=== PATIENT | male | born 1945 | race Caucasian/White ===

== ENCOUNTER → 2017-09-26 14:47 | Outpatient (CLI) | payer OTHER, SELFPAY ==
[2017-09-26 16:00] LABS: PSA,Total- Diagnostic 2.48 ng/mL (0.0-4.0)
== END ==
PROVIDERS: Visit Provider Urology
DX: R97.20 Elevated prostate specific antigen [PSA] (principal)
CPT/HCPCS: 36415; 84153

== ENCOUNTER → 2017-10-21 08:04 | Outpatient (CLI) | payer OTHER, SELFPAY ==
--- NOTE | 2017-10-21 08:15 | RAD_ITS ---
STUDY: X-RAY - ESOPHAGUS (BARIUM SWALLOW) WITH FLUOROSCOPY REASON FOR EXAM: Male, 72 years old. Tightness in the throat. TECHNIQUE: 8 view(s) of the esophagus were obtained following swallowing of barium. FLUOROSCOPY TIME (if supplied): (0:27) minutes/seconds COMPARISON: None. FINDINGS: There is no demonstrated esophageal foreign body. There is no demonstrated stricture or mucosal abnormality. Normal gastroesophageal junction, without a demonstrated hiatal hernia. The patient ingested a 12 mm tablet of barium without any difficulty. There is atherosclerotic calcification of the aortic arch with tortuosity of the descending aorta. Normal visualized pulmonary parenchyma. There are diffuse degenerative changes of the visualized thoracic spine. RAD/Esophagus Only IMPRESSION: Normal plain film x-ray examination (barium swallow) of the esophagus. Electronically Signed: Obdulio Ray MD at 8:52 EDT Tel [phone], Service support ,
== END ==
PROVIDERS: Family Provider Family Medicine; PCP Family Medicine; Visit Provider Internal Medicine Gastroenterology
DX: R13.10 Dysphagia, unspecified (principal)
CPT/HCPCS: 74220

== ENCOUNTER → 2018-01-28 12:38 | Outpatient (CLI) | payer OTHER, MEDICARE, SELFPAY ==
[2018-01-28 13:50] LABS: ALB/GLOB Ratio 0.9 RATIO (0.9-2.4); AST(SGOT) 19 U/L (15-37); Alanine Aminotransfer ALT/SGPT 28 U/L (16-61); Albumin, Serum 3.4 g/dL (3.2-5.0); Alkaline Phosphatase 60 U/L (45-117); Anion Gap 10 (5-15); BUN 24 mg/dL (7-18); BUN/Creat Ratio 19.4 RATIO (10-20); Calcium,Total 8.3 mg/dL (8.5-10.1); Chloride 109 mmol/L (98-107); Creatinine, Serum 1.24 mg/dL (0.70-1.30); EST Glomerular Filtration Rate 61 mL/min (>60); Est Glom Filt Rate - Afr Amer 74 mL/min (>60); Globulin 3.9 g/dL (2.2-4.2); Glucose 155 mg/dL (74-106); Potassium 4.1 mmol/L (3.5-5.1); Protein, Total 7.3 g/dL (6.4-8.2); Sodium Level 143 mmol/L (136-145); Thyroid Stim Hormone (TSH) 0.48 uIU/mL (0.358-3.74)
[2018-01-31 12:06] LABS: Testosterone, Free 9.48 ng/dL (5.00-21.00)
[2018-01-31 13:23] LABS: Testosterone, % Free 2.57 % (1.50-4.20); Testosterone, Total 369 ng/dL (264-916)
== END ==
PROVIDERS: Family Provider Family Medicine; PCP Family Medicine; Visit Provider Family Medicine
DX: I10 Essential (primary) hypertension (principal); R53.83 Other fatigue; R06.00 Dyspnea, unspecified
CPT/HCPCS: 36415; 80053; 84402; 84403; 84443

== ENCOUNTER → 2018-02-17 12:02 | Outpatient (CLI) | payer MEDICARE, SELFPAY ==
[2018-02-17 12:40] LABS: Hemoglobin A1c 5.6 % (4.2-6.3)
== END ==
PROVIDERS: Family Provider Family Medicine; PCP Family Medicine; Referring Provider Family Medicine; Visit Provider Family Medicine
DX: R73.01 Impaired fasting glucose (principal)
CPT/HCPCS: 36415; 83036

== ENCOUNTER → 2018-10-15 | Outpatient (CLI) | payer MEDICARE, SELFPAY ==
[2018-10-15 10:58] LABS: PSA,Total - Annual Screen 2.43 ng/mL (0.00-4.00)
== END | disposition home or self-care (01) ==
PROVIDERS: Family Provider Family Medicine; PCP Family Medicine; Referring Provider Urology; Visit Provider Urology
DX: Z12.5 Encounter for screening for malignant neoplasm of prostate (principal)
CPT/HCPCS: 36415; 84153; G0103

== ENCOUNTER → 2019-02-03 10:31 | Outpatient (CLI) | payer MEDICARE, SELFPAY ==
[2019-02-03 10:09] VITALS: BMI 35.9
[2019-02-03 12:16] LABS: Hematocrit 41.3 % (40-54); Hemoglobin 13.6 g/dL (13.0-16.5); Mean Corp Hgb Conc 32.9 g/dL (32-36); Mean Corpuscular Hgb 29.2 pg (27.0-32.0); Mean Corpuscular Volume 88.6 fL (80-94); Mean Platelet Vol. 9.5 fl (6.2-12.0); Platelet Count 232 K/mm3 (150-450); RBC Distribution Width SD 44.8 fl (35.1-43.9); Red Blood Count 4.66 M/mm3 (4.6-6.2); White Blood Count 4.8 K/mm3 (4.4-11.0)
[2019-02-03 12:41] LABS: ALB/GLOB Ratio 0.9 RATIO (0.9-2.4); AST(SGOT) 25 U/L (15-37); Alanine Aminotransfer ALT/SGPT 33 U/L (16-61); Albumin, Serum 3.6 g/dL (3.2-5.0); Alkaline Phosphatase 69 U/L (45-117); Anion Gap 7 (5-15); BUN 25 mg/dL (7-18); BUN/Creat Ratio 19.5 RATIO (10-20); Chloride 108 mmol/L (98-107); Cholesterol 141 mg/dL (200); Creatinine, Serum 1.28 mg/dL (0.70-1.30); EST Glomerular Filtration Rate 59 mL/min (>60); Est Glom Filt Rate - Afr Amer 71 mL/min (>60); Globulin 4.1 g/dL (2.2-4.2); Glucose 96 mg/dL (74-106); High Density Lipoprotein 43 mg/dL; Potassium 4.1 mmol/L (3.5-5.1); Protein, Total 7.7 g/dL (6.4-8.2); Sodium Level 139 mmol/L (136-145); Thyroid Stim Hormone (TSH) 0.55 uIU/mL (0.358-3.74); Triglycerides 54 mg/dL; Very Low Density Lipoprotein 11 mg/dL (5-40)
== END ==
PROVIDERS: Family Provider Family Medicine; PCP Family Medicine; Visit Provider Nurse Practitioner Family
DX: I10 Essential (primary) hypertension (principal); E03.9 Hypothyroidism, unspecified
CPT/HCPCS: 36415; 80053; 80061; 84443; 85027

== ENCOUNTER → 2019-12-15 16:12 | Outpatient (CLI) | payer MEDICARE, SELFPAY ==
[2019-02-03 10:09] VITALS: BMI 35.9
[2019-12-15 18:07] LABS: PSA,Total- Diagnostic 3.58 ng/mL (0.0-4.0)
== END ==
PROVIDERS: PCP Family Medicine; Referring Provider Urology; Visit Provider Urology
DX: R97.20 Elevated prostate specific antigen [PSA] (principal)
CPT/HCPCS: 36415; 84153

== ENCOUNTER 2020-08-03 13:43 | Outpatient (RCR) | payer MEDICARE, SELFPAY ==
[2019-02-03 10:09] VITALS: BMI 35.9
[2020-08-03] MEDS: COVID-19 VACC, MRNA(PFIZER)/PF 30 MCG/0.3 ML SYRINGE IM (08:31)
[2020-08-24] MEDS: COVID-19 VACC, MRNA(PFIZER)/PF 30 MCG/0.3 ML SYRINGE IM (08:32)
== END 2020-10-31 23:59 ==
LOC: IMMUN 13:43
PROVIDERS: PCP Family Medicine; Visit Provider Family Medicine
DX: Z23 Encounter for immunization (principal)
CPT/HCPCS: 0001A; 0002A; 91300

== ENCOUNTER → 2020-11-09 09:11 | Outpatient (CLI) | payer MEDICARE, SELFPAY ==
[2020-11-09 08:42] VITALS: BMI 35.9
[2020-11-09 12:17] LABS: Absolute Lymphocyte Count 1.28 X10^3/uL (0.83-4.51); Basophil# 0.04 X10^3/uL; Basophil% 0.8 % (0-1); Eosinophil# 0.18 X10^3/uL; Eosinophils% 3.6 % (0-5); Hematocrit 42.3 % (40-54); Hemoglobin 13.9 g/dL (13.0-16.5); Lymphocyte # 1.28 X10^3/ul (0.83-4.51); Lymphocyte % 25.4 % (19-41); Mean Corp Hgb Conc 32.9 g/dL (32-36); Mean Corpuscular Hgb 29.3 pg (27.0-32.0); Mean Corpuscular Volume 89.2 fL (80-94); Mean Platelet Vol. 9.6 fl (6.2-12.0); Monocyte# 0.54 X10^3/uL; Monocyte% 10.7 % (0-10); NRBC Flagged by Analyzer 0 % (0-5); Neutrophil # 2.98 X10^3/uL (2.7-7.7); Neutrophil % 59.1 % (47-70); Platelet Count 239 K/mm3 (150-450); RBC Distribution Width CV 13.8 % (11.6-14.6); RBC Distribution Width SD 44.5 fl (35.1-43.9); Red Blood Count 4.74 M/mm3 (4.6-6.2)
[2020-11-09 12:44] LABS: ALB/GLOB Ratio 0.9 RATIO (0.9-2.4); AST(SGOT) 13 U/L (15-37); Alanine Aminotransfer ALT/SGPT 26 U/L (16-61); Albumin, Serum 3.4 g/dL (3.2-5.0); Alkaline Phosphatase 66 U/L (45-117); Anion Gap 6 (5-15); BUN 23 mg/dL (7-18); BUN/Creat Ratio 19.8 RATIO (10-20); Calcium,Total 8.7 mg/dL (8.5-10.1); Chloride 108 mmol/L (98-107); Creatinine, Serum 1.16 mg/dL (0.70-1.30); EST Glomerular Filtration Rate 65 mL/min (>60); Est Glom Filt Rate - Afr Amer 79 mL/min (>60); Globulin 3.8 g/dL (2.2-4.2); Glucose 100 mg/dL (74-106); Potassium 4.3 mmol/L (3.5-5.1); Protein, Total 7.2 g/dL (6.4-8.2); Sodium Level 140 mmol/L (136-145); Thyroid Stim Hormone (TSH) 0.51 uIU/mL (0.358-3.74)
== END ==
PROVIDERS: PCP Family Medicine; Referring Provider Physician Assistant; Visit Provider Physician Assistant
DX: E03.9 Hypothyroidism, unspecified (principal); I10 Essential (primary) hypertension
CPT/HCPCS: 36415; 80053; 84443; 85025

== ENCOUNTER → 2021-01-10 09:49 | Outpatient (CLI) | payer MEDICARE, SELFPAY ==
[2020-11-16 09:02] VITALS: BMI 35.9
[2021-01-10 12:17] LABS: PSA,Total- Diagnostic 2.22 ng/mL (0.0-4.0)
== END ==
PROVIDERS: PCP Family Medicine; Referring Provider Urology; Visit Provider Urology
DX: R97.20 Elevated prostate specific antigen [PSA] (principal)
CPT/HCPCS: 36415; 84153

== ENCOUNTER 2021-06-27 15:34 | Outpatient (CLI) | payer MEDICARE, SELFPAY ==
--- NOTE | 2021-06-27 15:36 | RAD_ITS ---
STUDY: X-RAY - CERVICAL SPINE REASON FOR EXAM: Male, 75 years old. fall TECHNIQUE: 4 view(s) of the cervical spine were obtained. COMPARISON: None FINDINGS: Normal anterior atlantoaxial articulation. Normal odontoid process. Decreased cervical lordosis. There is chronic wedging of superior endplates of C6 and C7. No acute fracture or subluxation. Grade 1 spondylolisthesis at C3-4... There is narrowing at C3-4 and C5-6 and C6-7 disc spaces. The soft tissue structures are unremarkable. RAD/Cerv Spine 2 or 3 Views IMPRESSION: Moderate spondylosis and chronic wedging of C6 and C7. No acute fracture or other significant bony pathology Electronically Signed: Carlos Vega MD at 16:02 EST ,
== END 2021-06-27 23:59 | disposition short-term general hospital (02) ==
LOC: MTLAB 15:36 → MTRAD 15:36
PROVIDERS: PCP Family Medicine; Referring Provider Nurse Practitioner Family; Visit Provider Nurse Practitioner Family
DX: M54.2 Cervicalgia (principal); W19.XXXA Unspecified fall, initial encounter
CPT/HCPCS: 72040

== ENCOUNTER 2021-09-21 05:50 | Day surgery (SDC) | payer MEDICARE, SELFPAY ==
--- NOTE | 2021-09-21 | IMM_PTH ---
PATIENT: HARSHAD CHAND LOC: EN U#:[id number] AGE/SX: 76/M ROOM: RE09/21/[address]: Dr. Royal Gar DO : 1945 BED: DIS: 09/21/2021 SPEC #: [id number] RECD: 09/21/21 12:56 STATUS: LESLIE REQ #: [id number] HENRY: 09/21/21 00:[address]: Royal Gar DEPT: IMMUNOHISTOCHEMISTRY RECD BY: Muriel Francois ENTERED: 09/24/21 13:02 SP TYPE: IMMUNO OTHR DR: Dr. Pascual Mott, Tissues: Esophagus, NOS Procedures: P53 (initial) KI-67 (add) PHYSICIAN & INSTITUTION [place] [id number] SPECIMEN INFORMATION: Tissue Source: Distal esophageal biopsy Clinical Info: Dysphagia Specimen Number: [id number] CPT code: 19583, 03028 METHODOLOGY: Deparaffinized sections of prefer/formalin-fixed tissue or PAP/DQ stained slides are incubated with monoclonal/polyclonal antibodies/oligonucleotide probes. Localization is made via biotin free immunoperoxidase method. Appropriate controls are performed and reacted as expected. Results on target cell population are indicated in the following table: RESULTS: ANTIBODY / CLONE RESULT Block A P53 (DO-7) negative Ki-67 (30-9) positive, low These tests were developed and their performance characteristics determined by [facility]. They may not have been cleared or approved by the U.S. Food and Drug Administration. The FDA has determined that such clearance or approval is not necessary. The above immunohistochemical/dualISH markers are ordered and reviewed by the Pathologist. INTERPRETATION: Distal esophageal biopsy: Negative for dysplasia. ALEXANDER:theo 09/25/2021
[2021-09-21 06:24] VITALS: BP 136/69; PULSE 69; RESP 18; TEMP 36.7; O2SAT 96; BMI 34.6
[2021-09-21] MEDS: Lactated Ringers 1,000 ML 15 ML IV (06:34)
--- NOTE | 2021-09-21 06:46 | PCM.HP.BLA ---
History and Physical Date of Admission: 09/21/21 HARSHAD CHAND, is a 75 M who presents to the office today for difficulty swallowing food. This started several months ago but has gotten worse in the past month. Steak is especially problematic, and it is his favorite food. He is cutting food into small pieces, taking small bites, chewing slowly, and drinking plenty of fluids to make sure the food goes down. He has had to cough up food on a couple of occasions. He has not had to go to the emergency department for food stuck in the esophagus. He takes pantoprazole 40 mg daily. He does not have heartburn on PPI. No chest pain or abdominal pain. He has had endoscopy before, no abnormal findings. Last endoscopy was probably more than 5 years ago. He had a barium swallow at least 5 years ago which was normal. No hematemesis. He is accompanied by his today. Their daughter was diagnosed with and from esophageal cancer at the age of 37. Bowels are regular. No melena or hematochezia. Last colonoscopy was probably about 10 years ago, he does not recall what was said about follow-up. No history of polyps. His father had colon cancer. ROS Const Constitutional: No fatigue, fever(s), headache(s), weight change, sleep problems, abnormal sleep pattern or change in appetite ENT ENT: Positive for difficulty swallowing; No headache(s), hoarseness or sore throat Resp Respiratory: No cough, hemoptysis or shortness of breath Cardio Cardiology: No chest pain at rest or generalized swelling Gastro GI: Positive for difficulty swallowing; No abdominal pain, belching, bloating, change in bowel habits, change in stool character, coffee ground emesis, constipation, cramping, diarrhea, heartburn, feeling full early, excessive flatus, incontinent of stools, Vomiting blood/hematemesis, Blood in stool, loose stools, Black,tarry stools, nausea/dyspepsia, pain with swallowing or vomiting Musc Musculoskeletal: No joint pain, back pain, joint swelling, numbness or tingling Skin Skin: No itchy eyes or rash Neuro Neurology: No behavioral changes, confusion, headache(s), numbness or tingling Psych Psychiatric: No abnormal sleep pattern, No anxiety, No behavioral changes, No change in appetite, No confusion and No depression Endo Endocrine: No cold intolerance, fatigue, heat intolerance, increased thirst/drinking or weight change Aller/Imm Allergy/Immunologic: No food intolerance or itchy eyes Jackson/Lymp Hematologic/Lymphatic: No easy bleeding, easy bruising or enlarged lymph nodes Exam Const General: cooperative, comfortable, no acute distress, well developed and well groomed GI Inspection: obesity Palpation: soft and nontender Quality Reporting Tobacco Screening ([facility] 138) Smoking Status: Never smoker Assessment and Plan Assessment and Plan (1) Dysphagia: Status: Acute (2) FH: esophageal cancer: Status: Acute (3) FH: colon cancer: Status: Acute Plan: 85-year-old man with difficulty swallowing food. He is scheduled for endoscopy to evaluate for esophagitis, esophageal stricture, mass. He can increase his pantoprazole to twice daily. We will take care of his dysphagia and then address need for likely follow-up colonoscopy. I have re-examined the patient. There are no clinical changes since date of exam.
--- NOTE | 2021-09-21 07:00 | EGD_PTH ---
PATIENT: HARSHAD CHAND LOC: EN U#:[id number] AGE/SX: 76/M ROOM: RE09/21/[address]: Dr. Royal Gar DO : 1945 BED: DIS: 09/21/2021 SPEC #: [id number] RECD: 09/21/21 10:28 STATUS: LESLIE REDora #: [id number] HENRY: 09/21/21 07:[address]: Royal Gar DEPT: SURGICAL PATHOLOGY RECD BY: Muriel Francois ENTERED: 09/21/21 11:58 SP TYPE: EGD BIOPSY OT DR: Dr. Pascual Mott DO Tissues: A - Esophagus, NOS B - Duodenum, NOS Procedures: Special Stain Group II Surgery Specimen Level IV Alcian Blue/PAS (control) HEADER OPERATION: EGD ([facility] [place] PRE-OP DIAGNOSIS: Dysphagia TISSUE SUBMITTED: A. Distal esophageal biopsy, B. Duodenal polyp MICROSCOPIC DIAGNOSIS A. 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 Focal moderate chronic inflammation and mild acute inflammation. Focal changes consistent with eosinophilic esophagitis. Negative for dysplasia. B. Duodenal polyp, biopsy: Fragments of duodenal mucosa with non-specific chronic inflammation and Deepa gland hyperplasia. /SJ 09/24/21 COMMENT A. Alcian blue/PAS stain with matched control is used in the evaluation of the specimen. Increased number of eosinophils (>15 per high field) are noted suggestive of eosinophilic esophagitis. Immunohistochemistry ([id number]) for P53 and Ki-67 will be performed and results will be reported separately. MICROSCOPIC DESCRIPTION Slides are reviewed. GROSS DESCRIPTION A. Received is one container labeled with the patient name and designated distal esophageal biopsy. The specimen consists of multiple irregular fragments of light tolentino soft tissue that in aggregate measure 1.5 x 0.5 x 0.1 cm. The specimen is totally submitted in one cassette. / B. Received is one container labeled with the patient name and designated duodenal polyp. The specimen consists of two irregular fragments of light tolentino soft tissue that in aggregate measure 0.6 x 0.3 x 0.1 cm. The specimen is totally submitted in two cassettes. / 09/24/2021 TC:3 CPT: 27503 x 2, 27797
[2021-09-21 07:36] VITALS: BP 112/59; BP 136/69; PULSE 67; RESP 16; TEMP 36.7; O2SAT 97
[2021-09-21 07:40] VITALS: BP 102/55; BP 136/69; PULSE 71; RESP 16; O2SAT 96
--- NOTE | 2021-09-21 07:40 | OP.EGD_ITS ---
Patient Name: Thierry Jacinto Procedure Date: 09/21/2021 7:14 AM Date of : 1945 Age: 76 Procedure: Upper GI endoscopy Indications: Dysphagia Providers: Royal Gar DO Medicines: Monitored Anesthesia Care Patient Profile: This is a 76 year old male. Refer to note in patient chart for documentation of history and physical. Patient has symptoms of chronic dysphagia and dysphagia with solids. Complications: No immediate complications. Procedure: Pre-Anesthesia Assessment: - Prior to the procedure, a History and Physical was performed, and patient medications and allergies were reviewed. The patient is competent. The risks and benefits of the procedure and the sedation options and risks were discussed with the patient. All questions were answered and informed consent was obtained. Patient identification and proposed procedure were verified by the physician in the pre-procedure area. Mental Status Examination: alert and oriented. Airway Examination: normal oropharyngeal airway and neck mobility. Respiratory Examination: clear to auscultation. CV Examination: normal. Prophylactic Antibiotics: The patient does not require prophylactic antibiotics. Prior Anticoagulants: The patient has taken no previous anticoagulant or antiplatelet agents. After reviewing the risks and benefits, the patient was deemed in satisfactory condition to undergo the procedure. The anesthesia plan was to use moderate sedation / analgesia (conscious sedation). Immediately prior to administration of medications, the patient was re-assessed for adequacy to receive sedatives. The heart rate, respiratory rate, oxygen saturations, blood pressure, adequacy of pulmonary ventilation, and response to care were monitored throughout the procedure. The physical status of the patient was re-assessed after the procedure. After obtaining informed consent, the endoscope was passed under direct vision. Throughout the procedure, the patient's blood pressure, pulse, and oxygen saturations were monitored continuously. The gastroscope was introduced through the mouth, and advanced to the second part of duodenum. The upper GI endoscopy was accomplished without difficulty. The patient tolerated the procedure well. Scope In: 7:24:11 AM Scope Out: 7:32:54 AM Total Procedure Duration Time 0 hours 8 minutes 43 seconds Findings: LA Grade B (one or more mucosal breaks greater than 5 mm, not extending between the tops of two mucosal folds) esophagitis with no bleeding was found 38 to 40 cm from the incisors. Biopsies were taken with a cold forceps for histology. Verification of patient identification for the specimen was done. Estimated blood loss was minimal. A moderate Schatzki ring was found in the lower third of the esophagus. A guidewire was placed and the scope was withdrawn. Dilation was performed with a Savary dilator with no resistance at 60 Fr. A medium amount of a phytobezoar was found in the gastric body. A single 5 mm sessile polyp was found in the duodenal bulb. The polyp was removed with a cold snare. Resection and retrieval were complete. Verification of patient identification for the specimen was done. Estimated blood loss was minimal. Impression: - LA Grade B reflux esophagitis. Biopsied. - Moderate Schatzki ring. Dilated. - A medium amount of a phytobezoar in the stomach. - A single duodenal polyp. Resected and retrieved. -Mild duodenal stricture was seen in the first portion of the duodenum Recommendation: - Patient has a contact number available for emergencies. The signs and symptoms of potential delayed complications were discussed with the patient. Return to normal activities tomorrow. Written discharge instructions were provided to the patient. - Resume previous diet. - Continue present medications. - Await pathology results. - Resume previous diet. - Continue present medications. - Await pathology results. Procedure Code(s): --- Professional --- 79182, Esophagogastroduodenoscopy, flexible, transoral; with removal of tumor(s), polyp(s), or other lesion(s) by snare technique 63016, Esophagogastroduodenoscopy, flexible, transoral; with insertion of guide wire followed by passage of dilator(s) through esophagus over guide wire 06013, 59, Esophagogastroduodenoscopy, flexible, transoral; with biopsy, single or multiple CPT copyright 2017 [employer]. All rights reserved. The codes documented in this report are preliminary and upon senior architect/design manager review may be revised to meet current compliance requirements. Royal Gar DO 09/21/2021 7:39:27 AM This report has been signed electronically. Number of Addenda: 1 Note Initiated On: 09/21/2021 7:14 AM Addendum Number: 1 Addendum Date: 02/21/2022 6:22:24 AM MAC was used as sedation for this procedure. Royal Gar DO 02/21/2022 6:22:30 AM This report has been signed electronically.
--- NOTE | 2021-09-21 07:40 | OP.CCLET_ITS ---
02/21/2022 Pascual Mott Re : Upper GI endoscopy procedure for Thierry Jacinto Dear Dr. Mott This procedure was performed on Tuesday, September 21, 2021. My impressions and recommendations are as follows: Impressions : - LA Grade B reflux esophagitis. Biopsied. - Moderate Schatzki ring. Dilated. - A medium amount of a phytobezoar in the stomach. - A single duodenal polyp. Resected and retrieved. -Mild duodenal stricture was seen in the first portion of the duodenum Recommendations : - Patient has a contact number available for emergencies. The signs and symptoms of potential delayed complications were discussed with the patient. Return to normal activities tomorrow. Written discharge instructions were provided to the patient. - Resume previous diet. - Continue present medications. - Await pathology results. - Resume previous diet. - Continue present medications. - Await pathology results. My findings are described in the full procedure note, which is enclosed. If I can be of further assistance, please feel free to contact me at . Sincerely, Royal Gar DO 09/21/2021 7:39:27 AM This report has been signed electronically.
[2021-09-21 07:45] VITALS: BP 126/74; BP 136/69; PULSE 71; RESP 16; O2SAT 96
[2021-09-21 07:51] VITALS: BP 120/76; BP 136/69; PULSE 76; RESP 16; TEMP 36.6; O2SAT 94
[2021-09-21 08:12] VITALS: BP 136/69
== END 2021-09-21 08:31 | disposition home or self-care (01) ==
LOC: EN 05:51 → AC 05:52
PROVIDERS: PCP Family Medicine; Referring Provider Family Medicine; Visit Provider Internal Medicine Gastroenterology
PROC: 0DJ08ZZ Inspection of Upper Intestinal Tract, Via Natural or Artificial Opening Endoscopic (ICD-10-PCS; CPT 43235; principal; 2021-09-21 06:55)
DX: K22.2 Esophageal obstruction (principal); K31.7 Polyp of stomach and duodenum; K21.00 Gastro-esophageal reflux disease with esophagitis, without bleeding; Z80.0 Family history of malignant neoplasm of digestive organs; E03.9 Hypothyroidism, unspecified; Z79.899 Other long term (current) drug therapy; T18.2XXA Foreign body in stomach, initial encounter; K31.5 Obstruction of duodenum
CPT/HCPCS: 43251; 43248; 88305; 88313; 88341; 88342; J7120; C1769; J2405

== ENCOUNTER → 2022-01-16 | Outpatient (CLI) | payer MEDICARE, SELFPAY ==
[2022-01-16 09:29] LABS: PSA,Total- Diagnostic 1.76 ng/mL (0.0-4.0)
== END | disposition home or self-care (01) ==
LOC: LAB 08:18
PROVIDERS: PCP Family Medicine; Visit Provider Urology
DX: R97.20 Elevated prostate specific antigen [PSA] (principal)
CPT/HCPCS: 36415; 84153

== ENCOUNTER → 2022-02-13 | Outpatient (CLI) | payer MEDICARE, SELFPAY ==
[2022-02-13 13:33] LABS: ALB/GLOB Ratio 0.8 RATIO (0.9-2.4); AST(SGOT) 16 U/L (15-37); Alanine Aminotransfer ALT/SGPT 27 U/L (16-61); Albumin, Serum 3.4 g/dL (3.2-5.0); Alkaline Phosphatase 57 U/L (45-117); Anion Gap 8 (5-15); BUN 29 mg/dL (7-18); BUN/Creat Ratio 22.8 RATIO (10-20); Calcium,Total 9.1 mg/dL (8.5-10.1); Chloride 108 mmol/L (98-107); Creatinine, Serum 1.27 mg/dL (0.70-1.30); EST Glomerular Filtration Rate 59 mL/min (>60); Est Glom Filt Rate - Afr Amer 71 mL/min (>60); Glucose 103 mg/dL (74-106); Potassium 4.4 mmol/L (3.5-5.1); Protein, Total 7.4 g/dL (6.4-8.2); Sodium Level 141 mmol/L (136-145); T4 Free Direct 1.89 ng/dL (0.76-1.46); Thyroid Stim Hormone (TSH) 0.02 uIU/mL (0.358-3.74)
== END | disposition home or self-care (01) ==
LOC: BIMLAB 09:25
PROVIDERS: PCP Family Medicine; Referring Provider Family Medicine; Visit Provider Family Medicine
DX: E03.9 Hypothyroidism, unspecified (principal)
CPT/HCPCS: 36415; 80053; 84439; 84443

== ENCOUNTER → 2022-07-30 | Outpatient (CLI) | payer MEDICARE, SELFPAY ==
[2022-07-30 17:04] LABS: T4 Free Direct 1.35 ng/dL (0.76-1.46); Thyroid Stim Hormone (TSH) 0.24 uIU/mL (0.358-3.74)
== END | disposition home or self-care (01) ==
LOC: BIMLAB 15:47
PROVIDERS: PCP Family Medicine; Referring Provider Family Medicine; Visit Provider Family Medicine
DX: E03.9 Hypothyroidism, unspecified (principal)
CPT/HCPCS: 36415; 84439; 84443

== ENCOUNTER 2023-01-14 10:16 | Day surgery (SDC) | payer MEDICARE, SELFPAY ==
--- NOTE | 2023-01-14 | IMM_PTH ---
PATIENT: HARSHAD CHAND LOC: [facility] U#:[id number] AGE/SX: 77/M ROOM: RE01/14/[address]: Dr. Royal Gar DO : 1945 BED: DIS: 01/14/2023 SPEC #: [id number] RECD: 01/16/23 06:05 STATUS: LESLIE REDora #: [id number] HENRY: 01/14/23 00:[address]: Royal Gar DEPT: IMMUNOHISTOCHEMISTRY RECD BY: Nestor Ortega ENTERED: 01/16/23 06:05 SP TYPE: IMMUNO OTHR DR: Dr. Pascual Mott, Tissues: Gastric mucous membrane Procedures: H Pylori (initial) PHYSICIAN & INSTITUTION [place] [id number] SPECIMEN INFORMATION: Tissue Source: Gastric antrum Clinical Info: Dysphagia, Pinedo's esophagus, eosinophilic esophagitis, GERD Specimen Number: [id number] CPT code: 99473 METHODOLOGY: Deparaffinized sections of prefer/formalin-fixed tissue or PAP/DQ stained slides are incubated with monoclonal/polyclonal antibodies/oligonucleotide probes. Localization is made via biotin free immunoperoxidase method. Appropriate controls are performed and reacted as expected. Results on target cell population are indicated in the following table: RESULTS: ANTIBODY / CLONE RESULT H Pylori (polyclonal) negative These tests were developed and their performance characteristics determined by [facility]. They may not have been cleared or approved by the U.S. Food and Drug Administration. The FDA has determined that such clearance or approval is not necessary. The above immunohistochemical/dualISH markers are ordered and reviewed by the Pathologist. INTERPRETATION: Gastric antrum, biopsy: Negative for Helicobacter pylori organisms. SJ:dolores 01/16/23
[2023-01-14 10:38] VITALS: BP 161/90; PULSE 73; RESP 16; TEMP 36.6; O2SAT 92; BMI 35.0
[2023-01-14] MEDS: Lactated Ringers 1,000 ML 15 ML IV (10:41)
--- NOTE | 2023-01-14 11:22 | PCM.HP.BLA ---
History and Physical Date of Admission: 01/14/23 HARSHAD CHAND, is a 77 M who presents to the office today for f/u dysphagia, GERD, Pinedo's, EOE. He does have poor motility along with a tortuous esophagus in the setting of eosinophilic esophagitis.?He remains on pantoprazole 40 mg daily, no heartburn or acid reflux. He chronically has hoarse voice. No change in his dysphagia, bread and meat is especially problematic. No CP or abd pain. No nausea, vomiting, early satiety. Bowels are fine. Harshad established with this clinic 08.09.21 for evaluation of dysphagia for several months with severity progression. No emergent intervention required. FH includes daughter who is r/t esophageal cancer at age 37; father colon cancer. EGD 09.21.21 with LA Grade B reflux esophagitis with metaplasia/Pinedo?s esophagus (Ki-67+) and Eosinophilic Esophagitis; moderate Schatzki ring, dilated to 60F; medium amount of phytobezoar in stomach; duodenal Deepa gland hyperplasia polyp; duodenal stricture. ROS Const Constitutional: No fatigue ENT ENT: Positive for difficulty swallowing Gastro GI: Positive for difficulty swallowing; No abdominal pain, belching, bloating, change in bowel habits, change in stool character, coffee ground emesis, constipation, cramping, diarrhea, heartburn, feeling full early, excessive flatus, incontinent of stools, Vomiting blood/hematemesis, Blood in stool, loose stools, Black,tarry stools, nausea/dyspepsia, pain with swallowing, vomiting or other Musc Musculoskeletal: No joint pain Skin Skin: No yellowing of the eye or itchy eyes Psych Psychiatric: No anxiety and No depression Endo Endocrine: No fatigue Aller/Imm Allergy/Immunologic: No itchy eyes Jackson/Lymp Hematologic/Lymphatic: No easy bleeding or easy bruising Exam Const General: cooperative and comfortable Nutritional Appearance: obese Orientation: alert, awake and oriented x3 Quality Reporting Tobacco Screening ([facility] 138) Smoking Status: Never smoker Assessment and Plan Assessment and Plan (1) Dysphagia: Status: Chronic Plan: Multifactorial--EOE, GERD/Pinedo's, tortuous esophagus, poor motility Info re Dupixent for EIE Schedule repeat EGD Continue pantoprazole QAM (2) Barretts esophagus: Status: Chronic Plan: see above (3) Eosinophilic esophagitis: Status: Chronic Plan: see above (4) GERD (gastroesophageal reflux disease): Status: Chronic Plan: see above I have examined the patient and the H&P has been reviewed. There are no clinical changes since date of exam.
--- NOTE | 2023-01-14 11:30 | EGD_PTH ---
PATIENT: HARSHAD CHAND LOC: EN U#:[id number] AGE/SX: 77/M ROOM: RE01/14/[address]: Dr. Royal Gar DO : 1945 BED: DIS: 01/14/2023 SPEC #: [id number] RECD: 01/14/23 14:15 STATUS: LESLIE REDora #: [id number] HENRY: 01/14/23 11:[address]: Royal Gar DEPT: SURGICAL PATHOLOGY RECD BY: Muriel Francois ENTERED: 01/15/23 09:27 SP TYPE: EGD BIOPSY OT DR: Dr. Pascual Mott DO Tissues: A - Duodenum, NOS B - Gastric mucous membrane C - Esophagus, NOS Procedures: Special Stain Group II Surgery Specimen Level IV Alcian Blue/PAS (control) HEADER OPERATION: EGD biopsy, dilation PRE-OP DIAGNOSIS: Dysphagia, Pinedo's esophagus, eosinophilic esophagitis, GERD TISSUE SUBMITTED: A. Duodenum, B. Gastric antrum, C. Distal esophagus MICROSCOPIC DIAGNOSIS A. Duodenum, biopsy: Fragments of duodenal mucosa with nonspecific chronic inflammation. B. Gastric antrum, biopsy: Moderate gastritis. See microscopic description and comment. C. Distal esophagus, biopsy: Fragments of gastroesophageal mucosa with chronic inflammation. Intestinal metaplasia (goblet cell metaplasia) not identified. See comment. SJ: 01/16/23 COMMENT B. The results of immunohistochemistry for Helicobacter pylori will be reported separately ([id number]). C. Alcian blue/PAS stain with matched control is used in the evaluation of the specimen. MICROSCOPIC DESCRIPTION Slides are reviewed. The specimen shows fragments of gastric mucosa with chronic inflammatory cell infiltrates in the lamina propria consisting of lymphocytes and plasma cells, consistent with moderate chronic gastritis. GROSS DESCRIPTION A. Received is one container labeled with the patient name and designated duodenum. The specimen consists of two irregular fragment of light tolentino soft tissue that measures 0.6 x 0.6 x 0.1 cm. The specimen is totally submitted in one cassette. B. Received is one container labeled with the patient name and designated gastric antrum. The specimen consists of multiple irregular fragment of light tolentino soft tissue that measures 0.5 x 0.5 x 0.1 cm. The specimen is totally submitted in one cassette. C. Received is one container labeled with the patient name and designated distal esophagus. The specimen consists of multiple irregular fragment of light tolentino soft tissue that measures 1.0 x 0.2 x 0.1 cm. The specimen is totally submitted in one cassette. /AM:cc 01/15/23 TC:3 CPT: 88658 x3, 41732
[2023-01-14 11:55] VITALS: BP 161/90; BP 94/61; PULSE 63; RESP 18; TEMP 36.2; O2SAT 93
--- NOTE | 2023-01-14 11:58 | OP.CCLET_ITS ---
01/14/2023 Pascual Mott Re : Upper GI endoscopy procedure for Thierry Jacinto Dear Dr. Mott This procedure was performed on Saturday, January 14, 2023. My impressions and recommendations are as follows: Impressions : - Tortuous esophagus. Dilated. - Z-line irregular, 40 cm from the incisors. Biopsied. - Medium-sized hiatal hernia. - Erythematous mucosa in the antrum. Biopsied. - Erythematous duodenopathy. Biopsied. Recommendations : - Discharge patient to home. - Resume previous diet. - Continue present medications. - Await pathology results. My findings are described in the full procedure note, which is enclosed. If I can be of further assistance, please feel free to contact me at . Sincerely, Royal Gar, 01/14/2023 11:58:21 AM This report has been signed electronically.
--- NOTE | 2023-01-14 11:58 | OP.EGD_ITS ---
Patient Name: Thierry Jacinto Procedure Date: 01/14/2023 11:25 AM Date of : 1945 Age: 77 Procedure: Upper GI endoscopy Indications: Dysphagia Providers: Royal Gar DO Referring MD: Pascual Mott Medicines: Monitored Anesthesia Care Patient Profile: This is a 77 year old male. Refer to note in patient chart for documentation of history and physical. Patient has symptoms of chronic dysphagia. Complications: No immediate complications. Procedure: Pre-Anesthesia Assessment: - Prior to the procedure, a History and Physical was performed, and patient medications and allergies were reviewed. The patient is competent. The risks and benefits of the procedure and the sedation options and risks were discussed with the patient. All questions were answered and informed consent was obtained. Patient identification and proposed procedure were verified by the physician. Mental Status Examination: normal. Airway Examination: normal oropharyngeal airway and neck mobility. Prophylactic Antibiotics: The patient does not require prophylactic antibiotics. Prior Anticoagulants: The patient has taken no anticoagulant or antiplatelet agents. ASA Grade Assessment: II - A patient with mild systemic disease. After reviewing the risks and benefits, the patient was deemed in satisfactory condition to undergo the procedure. The anesthesia plan was to use monitored anesthesia care (MAC). Immediately prior to administration of medications, the patient was re-assessed for adequacy to receive sedatives. The heart rate, respiratory rate, oxygen saturations, blood pressure, adequacy of pulmonary ventilation, and response to care were monitored throughout the procedure. The physical status of the patient was re-assessed after the procedure. After obtaining informed consent, the endoscope was passed under direct vision. Throughout the procedure, the patient's blood pressure, pulse, and oxygen saturations were monitored continuously. The gastroscope was introduced through the mouth, and advanced to the second part of duodenum. The upper GI endoscopy was accomplished without difficulty. The patient tolerated the procedure well. Scope In: 11:41:08 AM Scope Out: 11:48:25 AM Total Procedure Duration Time 0 hours 7 minutes 17 seconds Findings: The upper third of the esophagus was moderately tortuous. A guidewire was placed and the scope was withdrawn. Dilation was performed with a Savary dilator with no resistance at 60 Fr. The dilation site was examined and showed moderate mucosal disruption. The Z-line was irregular and was found 40 cm from the incisors. Biopsies were taken with a cold forceps for histology. Verification of patient identification for the specimen was done. Estimated blood loss was minimal. A medium-sized hiatal hernia was present. Patchy mildly erythematous mucosa without bleeding was found in the gastric antrum. Biopsies were taken with a cold forceps for Helicobacter pylori testing. Verification of patient identification for the specimen was done. Estimated blood loss was minimal. Patchy mildly erythematous mucosa without active bleeding and with no stigmata of bleeding was found in the duodenal bulb. Biopsies were taken with a cold forceps for histology. Verification of patient identification for the specimen was done. Estimated blood loss was minimal. Impression: - Tortuous esophagus. Dilated. - Z-line irregular, 40 cm from the incisors. Biopsied. - Medium-sized hiatal hernia. - Erythematous mucosa in the antrum. Biopsied. - Erythematous duodenopathy. Biopsied. Recommendation: - Discharge patient to home. - Resume previous diet. - Continue present medications. - Await pathology results. Procedure Code(s): --- Professional --- 07325, Esophagogastroduodenoscopy, flexible, transoral; with insertion of guide wire followed by passage of dilator(s) through esophagus over guide wire 84021, 59,51, Esophagogastroduodenoscopy, flexible, transoral; with biopsy, single or multiple CPT copyright 2021 [employer]. All rights reserved. The codes documented in this report are preliminary and upon java lead review may be revised to meet current compliance requirements. Royal Gar DO 01/14/2023 11:58:21 AM This report has been signed electronically. Number of Addenda: 0 Note Initiated On: 01/14/2023 11:25 AM
[2023-01-14 12:00] VITALS: BP 161/90; BP 87/60; PULSE 69; RESP 16; O2SAT 92
[2023-01-14 12:05] VITALS: BP 100/74; BP 161/90; PULSE 71; RESP 16; O2SAT 94
[2023-01-14 12:10] VITALS: BP 119/81; BP 161/90; PULSE 67; RESP 18; TEMP 36.1; O2SAT 94
[2023-01-14 12:34] VITALS: BP 161/90
== END 2023-01-14 12:43 | disposition home or self-care (01) ==
LOC: EN 10:24 → AC 10:26
PROVIDERS: PCP Family Medicine; Referring Provider Family Medicine; Visit Provider Internal Medicine Gastroenterology
PROC: 0DJ08ZZ Inspection of Upper Intestinal Tract, Via Natural or Artificial Opening Endoscopic (ICD-10-PCS; CPT 43235; principal; 2023-01-14 11:25)
DX: R13.10 Dysphagia, unspecified (principal); K44.9 Diaphragmatic hernia without obstruction or gangrene; K29.70 Gastritis, unspecified, without bleeding
CPT/HCPCS: 43248; 43239; 88305; 88313; 88342; J7120; C1769

== ENCOUNTER → 2023-01-20 | Outpatient (CLI) | payer MEDICARE, SELFPAY | END | disposition home or self-care (01) | LOC: LAB 10:19 | PROVIDERS: PCP Family Medicine; Referring Provider Urology; Visit Provider Urology | DX: R97.20 Elevated prostate specific antigen [PSA] (principal) | CPT/HCPCS: 36415; 84153 ==

== ENCOUNTER → 2023-02-05 | Outpatient (CLI) | payer MEDICARE, SELFPAY ==
[2023-02-05 17:30] LABS: ALB/GLOB Ratio 1.1 RATIO (0.9-2.4); AST(SGOT) 18 U/L (15-37); Alanine Aminotransfer ALT/SGPT 23 U/L (16-61); Albumin, Serum 3.6 g/dL (3.2-5.0); Alkaline Phosphatase 65 U/L (45-117); Anion Gap 6 (5-15); BUN 29 mg/dL (7-18); BUN/Creat Ratio 17.8 RATIO (10-20); Calcium,Total 8.9 mg/dL (8.5-10.1); Chloride 110 mmol/L (98-107); Creatinine, Serum 1.63 mg/dL (0.70-1.30); EST Glomerular Filtration Rate 44 mL/min (>60); Est Glom Filt Rate - Afr Amer 53 mL/min (>60); Globulin 3.4 g/dL (2.2-4.2); Glucose 95 mg/dL (74-106); Potassium 4.4 mmol/L (3.5-5.1); Sodium Level 141 mmol/L (136-145)
== END | disposition home or self-care (01) ==
LOC: BIMLAB 16:10
PROVIDERS: PCP Family Medicine; Referring Provider Family Medicine; Visit Provider Family Medicine
DX: E03.9 Hypothyroidism, unspecified (principal); K22.70 Barrett's esophagus without dysplasia
CPT/HCPCS: 36415; 80053; 84443

== ENCOUNTER → 2023-09-03 | Outpatient (CLI) | payer MEDICARE, SELFPAY ==
[2023-09-03 17:26] LABS: ALB/GLOB Ratio 1.1 RATIO (0.9-2.4); AST(SGOT) 17 U/L (15-37); Alanine Aminotransfer ALT/SGPT 25 U/L (16-61); Albumin, Serum 3.6 g/dL (3.2-5.0); Alkaline Phosphatase 59 U/L (45-117); Anion Gap 5 (5-15); BUN 28 mg/dL (7-18); BUN/Creat Ratio 21.9 RATIO (10-20); Chloride 109 mmol/L (98-107); Creatinine, Serum 1.28 mg/dL (0.70-1.30); EST Glomerular Filtration Rate 58 mL/min (>60); Est Glom Filt Rate - Afr Amer 70 mL/min (>60); Globulin 3.2 g/dL (2.2-4.2); Glucose 92 mg/dL (74-106); Potassium 4.5 mmol/L (3.5-5.1); Protein, Total 6.8 g/dL (6.4-8.2); Sodium Level 140 mmol/L (136-145)
== END | disposition home or self-care (01) ==
LOC: BIMLAB 16:13
PROVIDERS: PCP Family Medicine; Referring Provider Family Medicine; Visit Provider Family Medicine
DX: N18.30 Chronic kidney disease, stage 3 unspecified (principal)
CPT/HCPCS: 36415; 80053

== ENCOUNTER → 2024-01-29 | Outpatient (CLI) | payer MEDICARE, SELFPAY ==
[2024-01-29 10:38] LABS: PSA,Total- Diagnostic 4.69 ng/mL (0.0-4.0)
== END | disposition home or self-care (01) ==
LOC: LAB 08:38
PROVIDERS: PCP Family Medicine; Referring Provider Urology; Visit Provider Urology
DX: R97.20 Elevated prostate specific antigen [PSA] (principal)
CPT/HCPCS: 36415; 84153

== ENCOUNTER → 2024-03-03 | Outpatient (CLI) | payer MEDICARE, SELFPAY ==
[2024-03-03 17:31] LABS: Anion Gap 8 (5-15); BUN 26 mg/dL (7-18); BUN/Creat Ratio 20.5 RATIO (10-20); Calcium,Total 8.6 mg/dL (8.5-10.1); Chloride 111 mmol/L (98-107); Creatinine, Serum 1.27 mg/dL (0.70-1.30); EST Glomerular Filtration Rate 58 mL/min (>60); Est Glom Filt Rate - Afr Amer 71 mL/min (>60); Glucose 119 mg/dL (74-106); Potassium 4.4 mmol/L (3.5-5.1); Sodium Level 142 mmol/L (136-145); T4 Free Direct 1.45 ng/dL (0.76-1.46)
== END | disposition home or self-care (01) ==
LOC: BIMLAB 15:54
PROVIDERS: PCP Family Medicine; Referring Provider Family Medicine; Visit Provider Family Medicine
DX: E03.9 Hypothyroidism, unspecified (principal); N18.30 Chronic kidney disease, stage 3 unspecified
CPT/HCPCS: 36415; 80048; 84439; 84443

== ENCOUNTER → 2024-04-26 | Outpatient (CLI) | payer MEDICARE, SELFPAY ==
[2024-04-27 13:08] LABS: PSA, Free 0.99 ng/mL; PSA, Free % 21.8 % (.)
== END | disposition home or self-care (01) ==
LOC: LAB 10:45
PROVIDERS: PCP Family Medicine; Referring Provider Nurse Practitioner; Visit Provider Nurse Practitioner
DX: R97.20 Elevated prostate specific antigen [PSA] (principal)
CPT/HCPCS: 36415; 84153; 84154

== ENCOUNTER → 2024-10-29 | Outpatient (CLI) | payer MEDICARE, SELFPAY ==
[2024-10-29 10:51] LABS: PSA,Total- Diagnostic 3.72 ng/mL (0.00-4.00)
== END | disposition home or self-care (01) ==
LOC: LAB 09:21
PROVIDERS: PCP Family Medicine; Referring Provider Urology; Visit Provider Urology
DX: R97.20 Elevated prostate specific antigen [PSA] (principal)
CPT/HCPCS: 36415; 84153

== ENCOUNTER → 2025-03-15 | Outpatient (CLI) | payer MEDICARE, SELFPAY ==
[2025-03-15 16:48] LABS: Mucous, Urine 0 SEEN /hpf (<or=2+); Squamous Epithelial Cells - UA 0 SEEN /hpf (0-5)
--- OUTSIDE RECORDS SUMMARY | 2025-03-15 17:06 | XMS RPT_ITS | CCD ---
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 Pascual Mott Primary Care Provider [phone] Dr. Pascual Mott Referring Provider Lion CONDE, PRESSER HAND-C David Attending Provider [phone] Dr. Pascual Mott Attending Provider Fatmata CONDE, PRESSER HAND-C Isis Hart Attending Provider [phone] Dr. Royal Gar Attending Provider [phone] Dr. Royal Gar Other Provider [phone] Dr. Pascual Mott Primary Care Provider [phone] Dr. Pascual Mott Referring Provider Dr. Royal Gar Attending Provider [phone] Dr. Pascual Mott Primary Care Provider [phone] Dr. Pascual Mott Referring Provider Dr. Royal Gar Attending Provider Dr. Pascual Mott Attending Provider Dr. Pascual Mott Primary Care Provider [phone] Dr. Pascual Mott Referring Provider Fatmata CONDE PRESSER HAND-C Isis Hart Attending Provider [phone] Dr. Royal Gar Attending Provider Dr. Royal Gar Other Provider [phone] Dr. Pascual Mott Attending Provider Dr. Pascual Mott Primary Care Provider [phone] Dr. Pascual Mott Attending Provider [phone] Dr. Pascual Mott Referring Provider [phone] Friend, Dr. Paige Attending Provider Dr. Pascual Mott DO Primary Care Provider [phone] Dr. Pascual Mott DO Referring Provider [phone] Rin BAIRES, Dr. Paige Attending Provider Naif ORELLANA, Dr. Fernando Barone Attending Provider Naif ORELLANA, Dr. Fernando Barone Referring Provider [phone] Brown, Pascual R Primary Care Unavailable Brown, Pascual R Attending Unavailable Brown, Pascual R Referring Unavailable NaifFernando Attending Unavailable Naif, Fernando Barone Referring Unavailable Brown, Pascual R Primary Care Unavailable Brown, Pascual R Primary Care Unavailable Brown, Pascual R Attending Unavailable Brown, Pascual R Referring Unavailable Brown, Pascual R Primary Care Unavailable Friend, Royal Attending Unavailable Brown, Pascual R Referring Unavailable [place], Yessica Attending Unavailable [place], Yessica Referring Unavailable Brown, Pascual R Primary Care Unavailable Brown, Pascual R Primary Care Unavailable Naif, Fernando Barone Attending Unavailable Naif, Fernando Barone Referring Unavailable Brown, Pascual R Primary Care Unavailable Rin, Royal Attending Unavailable Brown, Pascual R Referring Unavailable Medications Current Medications Medication Drug Class(es) Dates Sig (Normalized) Sig (Original) acetaminophen 325 mg / oxyCODONE hydrochloride 5 mg oral tablet (1 source) Opioid Agonist Start: 06-25-2021 End: 06-28-2021 take 1 tablet by mouth every four hours as needed for pain Percocet 5 mg-325 mg oral tablet Dose = 1 tab(s), Oral, q4h, PRN for pain, X 3 day(s), # 20 tab(s), 0 Refill(s), Fall Shoulder sprain, 111.4 Start Date: 06/25/21 Stop Date: 06/28/21 Status: Ordered finasteride 5 mg oral tablet (17 sources) 5-alpha Reductase Inhibitor Start: 01-28-2018 End: 02-03-2019 take 1 tablet by mouth once daily Finasteride 5 mg tablet Active 5 mg PO DAILY February 03, 2019 10:26am hydroCHLOROthiazide 12.5 mg / valsartan 320 mg oral tablet (20 sources) Thiazide Diuretic, Angiotensin 2 Receptor Vaughn Start: 02-24-2014 End: 02-10-2024 Valsartan-Hydroc hlorothiazide 320-12.5 mg tablet Active 1 {tbl} PO DAILY February 10, 2024 3:06pm Start: 02-24-2014 End: 02-05-2023 take 1 tablet by mouth once daily Valsartan-Hydrochlorothiazide Discontinu ed 1 TABLET PO DAILY May 06, 2022 11:07am February 05, 2023 4:01pm levothyroxine sodium 0.15 mg oral tablet (20 sources) l-Thyroxine Start: 02-20-2022 End: 05-10-2024 take 1 tablet by mouth once daily Levothyroxine 150 mcg tablet Active 150 ug PO DAILY May 10, 2024 11:52am Start: 06-25-2021 levothyroxine 175 mcg (0.175 mg) oral tablet Dose : 175 mcg = 1 tab(s), Oral, qDay, # 30 tab(s), 0 Refill(s) Start Date: 06/25/21 Status: Ordered Start: 01-28-2018 End: 02-20-2022 take 1 tablet by mouth once daily Levothyroxine 175 mcg tablet Discontinued 0 .ROUTE .COMPLEX January 17, 2022 2:50pm February 20, 2022 11:41am TAKE 1 TABLET BY MOUTH EVERY DAY Start: 02-24-2014 End: 01-28-2018 take 1 tablet by mouth once daily Levothyroxine 150 MCG tablet Discontinued 150 ug PO DAILY February 24, 2014 12:00am January 28, 2018 9:31am Miscellaneous Medical Supply (Blood Pressure Cuff) misc (8 sources) Start: 11-16-2020 Miscellaneous Medical Supply (Blood Pressure Cuff) misc Active 0 .ROUTE .MEDSUPPLY November 16, 2020 10:26am As directed Start: 11-16-2020 End: 03-03-2024 Miscellaneous Medical Supply (Blood Pressure Cuff) misc Discontinued 0 .ROUTE .MEDSUPPLY November 16, 2020 12:00am March 03, 2024 3:25pm As directed Start: 11-16-2020 Miscellaneous Medical Supply (Blood Pressure Cuff) [facility] [place] Active 0 .ROUTE .MEDSUPPLY November 16, 2020 12:00am As directed pantoprazole 40 mg delayed release oral tablet (20 sources) Proton Pump Inhibitor Start: 01-28-2018 End: 02-10-2024 take 1 tablet by mouth once daily Pantoprazole 40 mg tablet,delayed release (DR/EC) Active 0 .ROUTE .COMPLEX February 10, 2024 3:06pm TAKE 1 TABLET BY MOUTH EVERY DAY Completed/Discontinued Medications Medication Drug Class(es) Dates Sig (Normalized) Sig (Original) acetaminophen 325 mg / HYDROcodone bitartrate 5 mg oral tablet (8 sources) Opioid Agonist Start: 03-09-2014 End: 01-28-2018 Hydrocodone-Acetami nophen 1 TABLET tablet Discontinued 1 - 2 {tbl} PO EVERY 6 HOURS NEEDED as needed for MILD-MODERATE (PAIN SCALE 1-5) March 09, 2014 12:00am January 28, 2018 9:32am Start: 03-09-2014 End: 01-28-2018 take 1 tablet by mouth every six hours as needed Hydrocodone-Acetaminophen Discontinued 1 - 2 TABLET PO EVERY 6 HOURS NEEDED March 09, 2014 12:00am January 28, 2018 9:32am aspirin 325 mg delayed release oral tablet (8 sources) Platelet Aggregation Inhibitor, Nonsteroidal Anti-inflammatory Drug Start: 03-09-2014 End: 01-28-2018 take 1 tablet by mouth twice daily at mealtime Aspirin 325 MG tablet Discontinued 325 mg PO TWICE DAILY WITH MEALS March 09, 2014 12:00am January 28, 2018 9:32am ibuprofen 600 mg oral tablet (8 sources) Nonsteroidal Anti-inflammatory Drug Start: 06-27-2021 End: 08-09-2021 take 1 tablet by mouth three times daily at mealtime for pain Ibuprofen 600 mg tablet Discontinued 600 mg PO THREE TIMES A DAY as needed for pain June 27, 2021 1:00am August 09, 2021 10:16am take with food naproxen 500 mg oral tablet (8 sources) Nonsteroidal Anti-inflammatory Drug Start: 02-24-2014 End: 03-09-2014 take 1 tablet by mouth twice daily as needed for pain Naproxen 500 MG tablet Discontinued 500 mg PO TWICE DAILY NEEDED as needed for Pain February 24, 2014 12:00am March 09, 2014 12:29pm Problems Problem Classification Problem Date Documented Da te Episodic/Chronic Acute and unspecified renal failure (3 sources) Renal failure syndrome; Translations: [Unspecified kidney failure] 02-07-2023 Chronic Chronic kidney disease (3 sources) Chronic kidney disease stage 3; Translations: [Stage 3 chronic kidney disease] 09-03-2023 Chronic Chronic kidney disease (1 source) Chronic kidney disease; Translations: [Chronic kidney disease, stage 3 unspecified] Onset: 4 E Codes: Fall (10 sources) Fall; Translations: [Unspecified fall, initial encounter] Onset: 2 Episodic Esophageal disorders (20 sources) Gastroesophageal reflux disease; Translations: [Gastro-esophageal reflux disease without esophagitis] Onset: 5 Chronic Essential hypertension (12 sources) Hypertensive disorder; Translations: [Essential (primary) hypertension] Onset: 4 09-19-2021 Chronic Comment on above: CONTROLLED ON MED Nonspecific chest pain (8 sources) Chest pain; Translations: [Chest pain, unspecified] 01-28-2018 Episodic Other gastrointestinal disorders (9 sources) Dysphagia; Translations: [Dysphagia, unspecified] 04-01-2022 Episodic Other gastrointestinal disorders (8 sources) Dysphagia, unspecified; Translations: [Dysphagia, unspecified] Episodic Other gastrointestinal disorders (1 source) Other dysphagia; Translations: [Other dysphagia] Onset: 5 Episodic Other lower respiratory disease (8 sources) Dyspnea; Translations: [Dyspnea, unspecified] 01-28-2018 Episodic Other male genital disorders (8 sources) Hemospermia; Translations: [Hematospermia] 01-28-2018 Episodic Other non-traumatic joint disorders (8 sources) Shoulder pain; Translations: [Pain in unspecified shoulder] 01-28-2018 Episodic Other screening for suspected conditions (not mental disorders or infectious disease) (1 source) Elevated prostate specific antigen [PSA]; Translations: [Elevated prostate specific antigen [PSA]] Onset: 5 Episodic Residual codes; unclassified (8 sources) Family history of cancer of colon; Translations: [Family history of malignant neoplasm of digestive organs] 08-09-2021 Episodic Residual codes; unclassified (8 sources) Family history of cancer of the esophagus; Translations: [Family history of malignant neoplasm of digestive organs] 08-09-2021 Episodic Residual codes; unclassified (4 sources) Family history of malignant neoplasm of digestive organs; Translations: [Family history of malignant neoplasm of gastrointestinal tract] Episodic Spondylosis; intervertebral disc disorders; other back problems (9 sources) Neck pain; Translations: [Cervicalgia] Episodic Sprains and strains (19 sources) Sprain of shoulder; Translations: [Unspecified sprain of unspecified shoulder joint, initial encounter] Onset: 2 Episodic Thyroid disorders (12 sources) Acquired hypothyroidism; Translations: [Hypothyroidism, unspecified] Onset: 4 01-28-2018 Chronic Results Test Name Value Interpretation Reference Range Facility PSA,Total- Diagnosticon 06-0 PSA, DIAGNOSTIC 3.72 ng/mL Normal 0.00-4.00 [facility] Comment on above: Result Comment: This test was performed using the [employer] tPSA method. Measured values of a patient??sample can vary depending on the testing procedure used. PSA values determined on patient samples by different testing procedures cannot be used interchangeably. If there is a change in PSA assays while monitoring therapy, sequential testing should be performed to confirm baseline values. Performed By: #### L [id number] #### [facility] [address] [place], [address] Gastroenterology Visit Repor ton 2024 Gastroenterology Visit Report [facility] [address] [place] [address] OFFICE VISIT Date of Service: 09/07/24 MR#: [id number] Acct: [id number] Name: HARSHAD CHAND Bhaskar Rep #: [id number] : 1945 Provider: Royal Gar DO Age/Sex: 79/M Location: [facility] Status: Signed Intake Vital Signs 03/03/24 15:26 Height 5 ft 8 in Weight: 233 lb BMI 35.4 BP 110/64 Blood Pressure Location Lt brachial Position Sitting Respiration 16 Pulse 62 Pulse Source Monitor Temp 98.1 F Temp Source Temporal Pulse Oximetry (%) 96 Oxygen Delivery Method room air Intake Visit Reasons: 6 M FU Allergies No Known Allergies Allergy (Verified 03/03/24 15:23) Medications ???Medication ???Instructions ???Recorded ???Confirmed ???Type finasteride 5 mg tablet 5 mg PO DAILY #90 tabs 02/03/19 Rx pantoprazole 40 mg tablet,delayed See Rx Instructions .Route 09/07/24 Rx release .COMPLEX #90 tabs valsartan 320 1 tab PO DAILY #90 tabs 02/10/24 0 09/07/24 Rx mg-hydrochlorothiazid e 12.5 mg tablet levothyroxine 150 mcg tablet 150 mcg PO DAILY #90 TABLETS 05/1009/07/24 Rx Have you fallen in the past year?: No PFSH Medical History Wears hearing aid Prostate disease Wears glasses Thyroid disease Back pain Injury of head and neck Difficulty swallowing Gastric reflux Shortness of breath on exertion Hoarseness History of edema History of irregular heartbeat FH: colon cancer FH: esophageal cancer Fall Left shoulder strain Neck pain Rupture of left biceps tendon Chest pain Dyspnea Shoulder pain Hemospermia GERD (gastroesophageal reflux disease) Hypertension Acquired hypothyroidism Surgical History History of hip surgery History of amputation Family History Grandfather Heart disease Grandmother CVA (cerebral vascular accident) Father Colon cancer Daughter Cancer esophagus Social History Smoking Status: Never smoker alcohol intake: never substance use type: does not use what type of physical activity do you participate in: none HPI HPI Details: HARSHAD CHAND, is a 79 M who presents to the office today for follow up. *[facility] established 08.09.21 for evaluation of dysphagia for several months with severity progression. No emergent intervention required.??? FH includes daughter who is r/t esophageal cancer at age 37; father colon cancer.??? EGD 4.29.22???LA Grade B reflux esophagitis with metaplasia; Eosinophilic Esophagitis >15/field; moderate Schatzki ring, dilated to 60F; medium amount of phytobezoar in stomach; duodenal Deepa gland hyperplasia polyp; duodenal stricture.??? Start PPI??? OV 04.01.22???increase PPI to BID, add peppermint/lemon drops/tea and aloe vera liquid for intermittent dysphagia.??? OV 06.24.22 intermittent dysphagia continues to be a difficulty. PPI continues without adverse effect.??? OV 10.17.22 possible Dupixent start; Repeat EGD?EGD 01.14.23???tortuous esophagus, Savary 60F; irregular Zline; medium hiatal hernia; gastritis; duodenitis. No EOE or metaplasia seen??? Contact 01.21.23 with results. Continue PPI??? OV 24 pt reports that he is feeling pretty well, continues taking pantoprazole once a day. States that he notices trouble swallowing when he is eating dry food, so he tries to drink a lot of water with his food. OV 10 pt reports that he is doing well overall, continues to have some difficulty with dry foods or foods like rice, feels like they get caught in a 'pocket' in his esophagus. Pt states that drinking some water helps resolve the issue. OV 09.07.24 pt reports continued occasional difficulty swallowing; states it is not getting any worse. Pt denies other GI symptoms of concern at this time. ROS Const Constitutional: No fatigue, fever(s) or weight change ENT ENT: Positive for difficulty swallowing Gastro GI: Positive for difficulty swallowing; No abdominal pain, belching, bloating, change in bowel habits, change in stool character, coffee ground emesis, constipation, cramping, diarrhea, heartburn, feeling full early, excessive flatus, incontinent of stools, Vomiting blood/hematemesis, Blood in stool, loose stools, Black,tarry stools, nausea/dyspepsia, pain with swallowing, vomiting or other Musc Musculoskeletal: Positive for joint pain and stiffness Skin Skin: No yellowing of the eye or itchy eyes Psych Psychiatric: No anxiety and No depression Endo Endocrine: No fatigue or weight change Al (more content not included)... Normal [facility] PSA Total+%Freeon 04-27-2024 PSA, FREE 0.99 ng/mL Normal N/A [facility] Comment on above: Result Comment: Roch marlen ECLIA methodology. Performed By: #### L 3110.0500 #### [facility] [address], [address] PSA, FREE % 21.8 Normal . [facility] Comment on above: Result Comment: The table below lists the probability of prostate cancer for men with non-suspicious DWAYNE results and total PSA between 4 and 10 ng/mL, by patient age (Jaya et al, DIMA 1998, 279:1542). % Free PSA 50-64 yr 65-75 yr 0.00-10.00% 56% 55% 10.01-15.00% 24% 35% 15.01-20.00% 17% 23% 20.01-25.00% 10% 20% >25.00% 5% 9% Please note: Jaya et al did not make specific recommendations regarding the use of percent free PSA for any other population of men. Performed at: [facility] [employer] [id number] Poultry Farmer Meat: Augustine Rocha PhD, Phone: [phone] Performed By: #### L [id number] #### [facility] [address] [place], [address] PSA, TOTAL ULTR 4.540 ng/mL Abnormal 0.000-4.000 [facility] Comment on above: Result Comment: Roch marlen ECLIA methodology. According to the [place] [employer], Serum PSA should decrease and remain at undetectable levels after radical prostatectomy. The AUA defines biochemical recurrence as an initial PSA value 0.200 ng/mL or greater followed by a subsequent confirmatory PSA value 0.200 ng/mL or greater. Values obtained with different assay methods or kits cannot be used interchangeably. Results cannot be interpreted as absolute evidence of the presence or absence of malignant disease. Performed By: #### L 3110.0500 #### [facility] [address] [place], [address] Gastroenterology Visit Repor ton 03-09-2024 Gastroenterology Visit Report [facility] [address] [place] [address] OFFICE VISIT Date of Service: 03/09/24 MR#: [id number] Acct: [id number] Name: HARSHAD CHAND Rep #: [id number] : 1945 Provider: Royal Gar DO Age/Sex: 78/M Location: [facility] [place] Status: Signed Intake Vital Signs 09/03/23 15:54 03/03/24 15:26 Height 5 ft 8 in 5 ft 8 in Weight: 233 lb BMI 35.4 BP 110/64 Blood Pressure Location Lt brachial Position Sitting Respiration 16 Pulse 62 Pulse Source Monitor Temp 98.1 F Temp Source Temporal Pulse Oximetry (%) 96 Oxygen Delivery Method room air Intake Visit Reasons: 6 M FU Allergies No Known Allergies Allergy (Verified 03/03/24 15:23) Medications ???Medication ???Instructions ???Recorded ???Confirmed ???Type finasteride 5 mg tablet 5 mg PO DAILY #90 tabs 02/03/19 03/09/24 Rx levothyroxine 150 mcg tablet See Rx Instructions .Route 02/10/24 03/09/24 Rx .COMPLEX #90 tabs pantoprazole 40 mg tablet,delayed See Rx Instructions .Route 02/10/24 03/09/24 Rx release .COMPLEX #90 tabs valsartan 320 1 tab PO DAILY #90 tabs 02/10/24 03/09/24 Rx mg-hydrochlorothiazid e 12.5 mg tablet Have you fallen in the past year?: No PFSH Medical History Wears hearing aid Prostate disease Wears glasses Thyroid disease Back pain Injury of head and neck Difficulty swallowing Gastric reflux Shortness of breath on exertion Hoarseness History of edema History of irregular heartbeat FH: colon cancer FH: esophageal cancer Fall Left shoulder strain Neck pain Rupture of left biceps tendon Chest pain Dyspnea Shoulder pain Hemospermia GERD (gastroesophageal reflux disease) Hypertension Acquired hypothyroidism Surgical History History of hip surgery History of amputation Family History Grandfather Heart disease Grandmother CVA (cerebral vascular accident) Father Colon cancer Daughter Cancer esophagus Social History Smoking Status: Never smoker alcohol intake: never substance use type: does not use what type of physical activity do you participate in: none HPI HPI Details: HARSHAD CHAND, is a 78 M who presents to the office today for follow up. *[facility] established 08.09.21 for evaluation of dysphagia for several months with severity progression. No emergent intervention required.??? FH includes daughter who is r/t esophageal cancer at age 37; father colon cancer.??? EGD 09.21.21???LA Grade B reflux esophagitis with metaplasia; Eosinophilic Esophagitis >15/field; moderate Schatzki ring, dilated to 60F; medium amount of phytobezoar in stomach; duodenal Deepa gland hyperplasia polyp; duodenal stricture.??? Start PPI??? OV 04.01.22???increase PPI to BID, add peppermint/lemon drops/tea and aloe vera liquid for intermittent dysphagia.??? OV 06.24.22 intermittent dysphagia continues to be a difficulty. PPI continues without adverse effect.??? OV 10.17.22 possible Dupixent start; Repeat EGD?EGD 01.14.23???tortuous esophagus, Savary 60F; irregular Zline; medium hiatal hernia; gastritis; duodenitis. No EOE or metaplasia seen??? Contact 01.21.23 with results. Continue PPI??? OV 09.05.23 pt reports that he is feeling pretty well, continues taking pantoprazole once a day. States that he notices trouble swallowing when he is eating dry food, so he tries to drink a lot of water with his food. OV 10.15.24 pt reports that he is doing well overall, continues to have some difficulty with dry foods or foods like rice, feels like they get caught in a 'pocket' in his esophagus. Pt states that drinking some water helps resolve the issue. ROS Const Constitutional: No fatigue, fever(s) or weight change ENT ENT: Positive for difficulty swallowing Gastro GI: Positive for difficulty swallowing; No abdominal pain, belching, bloating, change in bowel habits, change in stool character, coffee ground emesis, constipation, cramping, diarrhea, heartburn, feeling full early, excessive flatus, incontinent of stools, Vomiting blood/hematemesis, Blood in stool, loose stools, Black,tarry stools, nausea/dyspepsia, pain with swallowing, vomiting or other Musc Musculoskeletal: Positive for muscle weakness and stiffness; No joint pain Skin Skin: No yellowing of the eye or itchy eyes Psych Psychiatric: Positive for anxiety and No depression Endo Endocrine: No fatigue or weight change Aller/Imm Allergy/Immunologic: No itchy eyes Jackson/Lymp Hematologic/Lymphatic : Positive for (more content not included)... Normal [facility] Basic Metabolic Profile (BMP )on 03-03-2024 BUN/CRE 20.5 RATIO High -20 [facility] Comment on above: Performed By: #### L 500.2500, L501.9520, L506.0400 #### [facility] [address] [place], [address] CA,Total 8.6 mg/dL Normal 8.5-10.1 [facility] Comment on above: Performed By: #### L 500.2500, [id number], L506.0400 #### [facility] [address] [place], [address] Chloride [Moles/Vol] 111 mmol/L High 98-107 [facility] Comment on above: Performed By: #### L 500.2500, [id number], L506.0400 #### [facility] [address] [place], [address] CO2 [Moles/Vol] 23.0 mmol/L Normal 21.0-32.0 [facility] Comment on above: Performed By: #### L 500.2500, [id number], L506.0400 #### [facility] [address] [place], [address] Creatinine [Mass/Vol] 1.27 mg/dL Normal 0.70-1.30 [facility] Comment on above: Result Comment: The validity of the calculated GFR GFRAA in patients over 70 years has not been determined. Clinical correlation is essential. Performed By: #### L 500.2500, [id number], L506.0400 #### [facility] [address] [place], [address] EST GFR - AA 71 mL/min Normal >60 [facility] Comment on above: Result Comment: Afri can [place] GFR Calc Performed By: #### L 500.2500, [id number], L506.0400 #### [facility] [address] [place], [address] GAP 8 Normal 5-15 [facility] Comment on above: Performed By: #### L 500.2500, [id number], L506.0400 #### [facility] [address] [place], [address] GFR/1.73 sq M.predicted among non-blacks MDRD (S/P/Bld) [Vol rate/Area] 58 mL/min/{1.73_m2} Low >60 [facility] Comment on above: Result Comment: Non- GFR Calc Performed By: #### L 500.2500, L501.9520, L506.0400 #### [facility] [address] [place], [address] Glucose [Mass/Vol] 119 mg/dL High 74-106 [facility] Comment on above: Result Comment: Fast ing Glucose result from 100 to 125 mg/dL suggests IMPAIRED HOMEOSTASIS per A.D.A. criteria. Performed By: #### L 500.2500, [id number], L506.0400 #### [facility] [address] [place], [address] Potassium [Moles/Vol] 4.4 mmol/L Normal 3.5-5.1 [facility] Comment on above: Performed By: #### L 500.2500, [id number], [id number] #### [facility] [address] [place], [address] Sodium [Moles/Vol] 142 mmol/L Normal 136-145 [facility] Comment on above: Performed By: #### L 500.2500, [id number], [id number] #### [facility] [address] [place], [address] Urea nitrogen [Mass/Vol] 26 mg/dL High 7-18 [facility] Comment on above: Performed By: #### L 500.2500, [id number], [id number] #### [facility] [address] [place], [address] Internal Medicine Office Vis [facility] 03-03-2024 Internal Medicine Office Visit [facility] [address] [place] [address] OFFICE VISIT Date of Service: 03/03/24 MR#: [id number] Acct: [id number] Name: HARSHAD CHAND Bhaskar Rep #: [id number] : 1945 Provider: Dr. Pascual rogers, DO Age/Sex: 78/M Location: [facility] [place] Status: Signed Intake Vital Signs 09/03/23 15:54 03/03/24 15:26 Height 5 ft 8 in 5 ft 8 in Weight: 238 lb 6 oz 233 lb BMI 36.2 35.4 BP 134/82 H 110/64 Blood Pressure Location Lt brachial Lt brachial Position Sitting Sitting Respiration 16 16 Pulse 73 62 Pulse Source Monitor Monitor Temp 97.9 F 98.1 F Temp Source Temporal Temporal Pulse Oximetry (%) 96 Oxygen Delivery Method room air Intake Visit Reasons: 6 M FU Chief Complaint: f/u Rigging Man Required: No Is patient in pain?: No Allergies No Known Allergies Allergy (Verified 03/03/24 15:23) Medications ???Medication ???Instructions ???Recorded ???Confirmed ???Type finasteride 5 mg tablet 5 mg PO DAILY #90 tabs 02/03/19 03/03/24 Rx levothyroxine 150 mcg tablet See Rx Instructions .Route 02/10/24 03/03/24 Rx .COMPLEX #90 tabs pantoprazole 40 mg tablet,delayed See Rx Instructions .Route 02/10/24 03/03/24 Rx release .COMPLEX #90 tabs valsartan 320 1 tab PO DAILY #90 tabs 02/10/24 03/03/24 Rx mg-hydrochlorothiazid e 12.5 mg tablet Have you fallen in the past year?: No Nurse's Note: thinks he coughs too much he doesn't think it's anything more than usual. It is typically in the mornings. Declines flu vaccine. [facility] Medical History Wears hearing aid Prostate disease Wears glasses Thyroid disease Back pain Injury of head and neck Difficulty swallowing Gastric reflux Shortness of breath on exertion Hoarseness History of edema History of irregular heartbeat FH: colon cancer FH: esophageal cancer Fall Left shoulder strain Neck pain Rupture of left biceps tendon Chest pain Dyspnea Shoulder pain Hemospermia GERD (gastroesophageal reflux disease) Hypertension Acquired hypothyroidism Surgical History History of hip surgery History of amputation Family History Grandfather Heart disease Grandmother CVA (cerebral vascular accident) Father Colon cancer Daughter Cancer esophagus Social History Smoking Status: Never smoker alcohol intake: never substance use type: does not use what type of physical activity do you participate in: none HPI HPI Chief Complaint: f/u Details: HARSHAD CHAND, is a 78 M who presents to the office today for a follow-up on his chronic kidney disease. The last time he was in his creatinine has improved to almost normal but I want to make sure that this improvement continues. He is also overdue for recheck on his thyroid. He still has some trouble with problems swallowing if he eats too fast but as long as he sips water and chews and swallows slowly it does not seem to bother him much. ROS Const Constitutional: No body ache, chills, excessive sweating, fatigue, fever(s), frequent falls, headache(s), snoring, weakness, sleep problems or change in appetite Eyes Eyes: No blurry vision, change in vision, eye pain or Light sensitivity ENT ENT: No abnormal hearing, ear or mastoid pain, tinnitus, nasal congestion, headache(s), neck pain or sore throat Resp Respiratory: No cough, shortness of breath, snoring or wheezing Cardio Cardiology: No chest pain at rest, chest pain with exertion, excessive sweating, shortness of breath, dyspnea on exertion, lightheadedness, orthopnea or palpitations Gastro GI: No abdominal pain, change in bowel habits, constipation, cramping, diarrhea, nausea/dyspepsia or vomiting Genitourinary Male: No burning urination, painful urination, urinary incontinence or urinary frequency Musc Musculoskeletal: No abnormal gait, joint pain, back pain, limited range of motion, neck pain or numbness Skin Skin: No dry skin, redness, lesions, itchy eyes, rash or wounds Neuro Neurology: No abnormal gait, abnormal hearing, weakness, frequent falls, headache(s), memory loss or numbness Psych Psychiatric: No anxiety, No change in appetite, No depression, No memory loss and No Thoughts of harming yourself/Others Endo Endocrine: No cold intolerance, excessive sweating, fatigue, flushing, heat intolerance, increased thirst/drinking or increased hunger Aller/Imm Allergy/Immunologic: No itchy eyes, seasonal allergy symptoms, hives or wheezing Jackson/Lymp Hematologic/Lymphatic : No easy bleeding, easy bruising, enlarged lymph nodes or other Exam Const (more content not included)... Normal [facility] T4 Free Directon 03-03-2024 T4 FREE DIRECT 1.45 ng/dL Normal 0.76-1.46 [facility] Comment on above: Performed By: #### L 500.2500, L501.9520, L506.0400 #### [facility] [address] [place], [address] Thyroid Stim Hormone (TSH)on 03-03-2024 TSH 0.080 uIU/mL Low 0.358-3.740 [facility] Comment on above: Performed By: #### L 500.2500, L501.9520, L506.0400 #### [facility] [address] [place], [address] PSA,Total- Diagnosticon 09 PSA, DIAGNOSTIC 4.69 ng/mL High 0.0-4.0 [facility] Comment on above: Result Comment: This test was performed using the TPSA assay method for the [employer] chemistry system. Values obtained with different assay methods cannot be used interchangably. When changing PSA assays in the course of monitoring a patient, additional sequential testing should be carried out to confirm baseline values. Performed By: #### L 501.9940 #### [facility] [address] [place], [address] Basophil percentageOrdered B y: Pascual Brown on 09-03-2023 Bilirubin [Mass/Vol] 0.90 mg/dL 0.20-1.00 [facility] Comment on above: For patients on eltr ombopag therapy, use of Dimension [place] TBIL is not recommended. Chloride [Moles/Vol] 109 mmol/L 98-107 [facility] Glucose [Mass/Vol] 92 mg/dL 74-106 [facility] Potassium [Moles/Vol] 4.5 mmol/L 3.5-5.1 [facility] Protein [Mass/Vol] 6.8 g/dL 6.4-8.2 [facility] Sodium [Moles/Vol] 140 mmol/L 136-145 [facility] Laboratory - Chemistry and C hemistry - challengeOrdered By: Pascual Brown on 09-03-2023 Albumin/Globulin [Mass ratio] 1.1 {ratio} 0.9-2.4 [facility] ALP [Catalytic activity/Vol] 59 U/L 45-117 [facility] ALT [Catalytic activity/Vol] 25 U/L 16-61 [facility] CO2 [Moles/Vol] 26.0 mmol/L 21.0-32.0 [facility] Globulin (S) [Mass/Vol] 3.2 g/dL 2.2-4.2 [facility] Urea nitrogen/Creatinine [Mass ratio] 21.9 mg/mg 10-20 [facility] No Panel InformationOrdered By: Pascual Mott on 09-03-2023 Estimated GFR (MDRD) Amer 70 mL/min >60 [facility] Comment on above: GFR Calc Estimated GFR (MDRD) Non-Af Amer 58 mL/min >60 [facility] Comment on above: Non- GFR Calc Serum or plasma calcium brenda urement (mass/volume)Ordered By: Pascual Mott on 09-03-2023 Calcium [Mass/Vol] 9.0 mg/dL 8.5-10.1 [facility] Serum or plasma creatinine m easurement (mass/volume)Ordered By: Pascual Mott on 09-03-2023 Creatinine [Mass/Vol] 1.28 mg/dL 0.70-1.30 [facility] Comment on above: The validity of the calculated GFR & GFRAA in patients over 70 years has not been determined. Clinical correlation is essential. Serum or plasma urea nitroge n measurement (mass/volume)Ordered By: Pascual Mott on 09-03-2023 Urea nitrogen [Mass/Vol] 28 mg/dL 7-18 [facility] Thin prep Papanicolaou smear with manual screeningOrdered By: Pascual Mott on 09-03-2023 Thin prep Papanicolaou smear with manual screening 3.6 g/dL 3.2-5.0 [facility] Thin prep Papanicolaou smear with manual screening 17 U/L 15-37 [facility] Thin prep Papanicolaou smear with manual screening 5 5-15 [facility] Basophil percentageOrdered B y: Pascual Mott on 02-05-2023 Bilirubin [Mass/Vol] 0.40 mg/dL 0.20-1.00 [facility] Comment on above: For patients on eltr ombopag therapy, use of Dimension [place] TBIL is not recommended. Chloride [Moles/Vol] 110 mmol/L 98-107 [facility] Glucose [Mass/Vol] 95 mg/dL 74-106 [facility] Potassium [Moles/Vol] 4.4 mmol/L 3.5-5.1 [facility] Protein [Mass/Vol] 7.0 g/dL 6.4-8.2 [facility] Sodium [Moles/Vol] 141 mmol/L 136-145 [facility] Laboratory - Chemistry and C hemistry - challengeOrdered By: Pascual Mott on 02-05-2023 ALP [Catalytic activity/Vol] 65 U/L 45-117 [facility] ALT [Catalytic activity/Vol] 23 U/L 16-61 [facility] CO2 [Moles/Vol] 25.0 mmol/L 21.0-32.0 [facility] Globulin (S) [Mass/Vol] 3.4 g/dL 2.2-4.2 [facility] Urea nitrogen/Creatinine [Mass ratio] 17.8 mg/mg 10-20 [facility] No Panel InformationOrdered By: Pascual Mott on 02-05-2023 Estimated GFR (MDRD) Amer 53 mL/min >60 [facility] Comment on above: GFR Calc Estimated GFR (MDRD) Non-Af Amer 44 mL/min >60 [facility] Comment on above: Non- GFR Calc Thyroid Stimulating Hormone (TSH) 0.40 uIU/mL 0.358-3.74 [facility] Serum or plasma albumin brenda urement (mass/volume)Ordered By: Pascual Mott on 02-05-2023 Albumin [Mass/Vol] 3.6 g/dL 3.2-5.0 [facility] Serum or plasma albumin/glob ulin mass ratioOrdered By: Pascual Mott on 02-05-2023 Albumin/Globulin [Mass ratio] 1.1 {ratio} 0.9-2.4 [facility] Serum or plasma calcium brenda urement (mass/volume)Ordered By: Pascual Mott on 02-05-2023 Calcium [Mass/Vol] 8.9 mg/dL 8.5-10.1 [facility] Serum or plasma creatinine m easurement (mass/volume)Ordered By: Pascual Mott on 02-05-2023 Creatinine [Mass/Vol] 1.63 mg/dL 0.70-1.30 [facility] Comment on above: The validity of the calculated GFR & GFRAA in patients over 70 years has not been determined. Clinical correlation is essential. Serum or plasma urea nitroge n measurement (mass/volume)Ordered By: Pascual Mtot on 02-05-2023 Urea nitrogen [Mass/Vol] 29 mg/dL 7-18 [facility] Thin prep Papanicolaou smear with manual screeningOrdered By: Pascual Mott on 02-05-2023 Thin prep Papanicolaou smear with manual screening 18 U/L 15-37 [facility] Thin prep Papanicolaou smear with manual screening 6 5-15 [facility] No Panel InformationOrdered By: Fernando Disla on 01-20-2023 Prostate Specific Antigen Total 2.50 ng/mL 0.0-4.0 [facility] Comment on above: This test was perfor med using the TPSA assay method for theDimension chemistry system. Values obtained with differentassay methods cannot be used interchangably.When changing PSA assays in the course of monitoring apatient, additional sequential testing should be carriedout to confirm baseline values. Laboratory - Chemistry and C hemistry - challengeOrdered By: Dr. Mott on 07-30-2022 Free T4 [Mass/Vol] 1.35 ng/dL 0.76-1.46 [facility] No Panel InformationOrdered By: Dr. Mott on 07-30-2022 Thyroid Stimulating Hormone (TSH) 0.24 uIU/mL 0.358-3.74 [facility] No Panel Informationon 01-16 Prostate Specific Antigen Total 1.76 ng/mL 0.0-4.0 [facility] Work Phone: Comment on above: This test was perfor med using the TPSA assay method for theDimension chemistry system. Values obtained with differentassay methods cannot be used interchangably.When changing PSA assays in the course of monitoring apatient, additional sequential testing should be carriedout to confirm baseline values. CT HEAD OR BRAIN W/O CONTRAS Ton 06-25-2021 CT HEAD OR BRAIN W/O CONTRAST ORIGINAL EXAMINATION: CT OF THE HEAD WITHOUT CONTRAST 06/25/2021 5:20 pm TECHNIQUE: CT of the head was performed without the administration of intravenous contrast. Dose modulation, iterative reconstruction, and/or weight based adjustment of the mA/kV was utilized to reduce the radiation dose to as low as reasonably achievable. COMPARISON: None. HISTORY: ORDERING SYSTEM PROVIDED HISTORY: Reason for Exam: fall Blunt posterior head trauma. FINDINGS: BRAIN/VENTRICLES: There is no acute intracranial hemorrhage, mass effect or midline shift. No abnormal extra-axial fluid collection. The panchal-white differentiation is maintained without evidence of an acute infarct. There is no evidence of hydrocephalus. ORBITS: The visualized portion of the orbits demonstrate no acute abnormality. SINUSES: The visualized paranasal sinuses and mastoid air cells demonstrate no acute abnormality. SOFT TISSUES/SKULL: No acute abnormality of the visualized skull. There is a sizable scalp hematoma overlying the left occipital region. Active hemorrhage may be present. IMPRESSION: No acute intracranial abnormality. Scalp contusion/hemorrhage left occipital scalp. Interpreted by: Henry Pierce DO Preliminary Report By: Henry Pierce DO Electronically signed By Henry Pierce DO Dictated Date: 06/25/2021 5:23:35 PM Prelim Date: 06/25/2021 5:25:16 PM Sign Date: 06/25/2021 5:25:16 PM Ordering Provider: MIRLANDE ARRIAGA [facility]) XR CHEST 2 VIEWSon XR CHEST 2 VIEWS ORIGINAL EXAMINATION: TWO XRAY VIEWS OF THE CHEST 06/25/2021 5:24 pm COMPARISON: None. HISTORY: ORDERING SYSTEM PROVIDED HISTORY: Reason for Exam: fall Trauma. FINDINGS: The lungs are without acute focal process. There is no effusion or pneumothorax. The cardiomediastinal silhouette is without acute process. The osseous structures are without acute process. IMPRESSION: No acute process. Interpreted by: Henry Pierce DO Preliminary Report By: Henry Pierce DO Electronically signed By Henry Pierce DO Dictated Date: 06/25/2021 5:30:41 PM Prelim Date: 06/25/2021 5:31:22 PM Sign Date: 06/25/2021 5:31:22 PM Ordering Provider: MIRLANDE ARRIAGA [facility]) XR RIBS 2 VIEWS LEFTon 06-25 XR RIBS 2 VIEWS LEFT ORIGINAL EXAMINATION: 5 XRAY VIEWS OF THE LEFT RIBS 06/25/2021 5:25 pm COMPARISON: None. HISTORY: ORDERING SYSTEM PROVIDED HISTORY: Reason for Exam: fall Left chest trauma. FINDINGS: No evidence of acute fracture of the ribs. No focal rib abnormality. No evidence of acute focal process in the lungs. No evidence of consolidation or pulmonary edema. No pleural effusion or pneumothorax. Cardiomediastinal silhouette demonstrates no acute abnormality. IMPRESSION: No acute abnormality of the ribs. No acute process in the lungs. Interpreted by: Henry Pierce DO Preliminary Report By: Henry Pierce DO Electronically signed By Henry Pierce DO Dictated Date: 06/25/2021 5:33:40 PM Prelim Date: 06/25/2021 5:34:19 PM Sign Date: 06/25/2021 5:34:19 PM Ordering Provider: MIRLANDE Davis [facility] ([place]) XR SHOULDER MINIMUM 2 VIEWS LEFTon 06-25-2021 XR SHOULDER MINIMUM 2 VIEWS LEFT ORIGINAL EXAMINATION: TWO XRAY VIEWS OF THE LEFT SHOULDER 06/25/2021 6:01 pm COMPARISON: Left shoulder x-ray 03/27/2015 HISTORY: ORDERING SYSTEM PROVIDED HISTORY: Reason for Exam: Left shoulder pain status post fall FINDINGS: No acute fracture or dislocation. The acromioclavicular and coracoclavicular distances are maintained. The humeral head is appropriately seated within the glenoid. There are moderate degenerative changes of the left acromioclavicular joint. Mild degenerative changes of the left glenohumeral joint. IMPRESSION: No acute fracture or dislocation. I have personally reviewed the images of this examination and agree with the resident's findings and interpretation. Interpreted by: Henry Pierce DO Preliminary Report By: Shiva Montesinos Electronically signed By Henry Pierce DO Dictated Date: 06/25/2021 6:08:42 PM Prelim Date: 06/25/2021 6:12:01 PM Sign Date: 06/25/2021 6:25:29 PM Ordering Provider: MIRLANDE Davis [facility] ([place]) XR SPINE THORACIC 2 VIEWSon 06-25-2021 XR SPINE THORACIC 2 VIEWS ORIGINAL EXAMINATION: TWO XRAY VIEWS OF THE THORACIC SPINE 06/25/2021 5:24 pm COMPARISON: None. HISTORY: ORDERING SYSTEM PROVIDED HISTORY: Reason for Exam: fall FINDINGS: 12 thoracic segments noted in appropriate apposition and alignment. There is no acute fracture, spondylolysis or spondylolisthesis. IMPRESSION: No acute bony abnormality thoracic spine. Interpreted by: Henry Pierce DO Preliminary Report By: Henry Pierce DO Electronically signed By Henry Pierce DO Dictated Date: 06/25/2021 5:31:33 PM Prelim Date: 06/25/2021 5:33:30 PM Sign Date: 06/25/2021 5:33:30 PM Ordering Provider: MIRLANDE ARRIAGA [facility] ([place]) Vital Signs Date Time Vital Sign Value Performing Clinician Facility 09-03-2023 15:54-0400 Body height 172.[address] Pascual Mott Work Phone: [facility] 09-03-2023 15:54-0400 Body mass index (BMI) [Ratio] 36.2 kg/m2 Dr. Pascual Mott Work Phone: [facility] 09-03-2023 15:54-0400 Body temperature 97.9 [degF] Dr. Pascual Mott Work Phone: [facility] 09-03-2023 15:54-0400 Body weight 108.[address] Pascual Mott Work Phone: [facility] 09-03-2023 15:54-0400 Diastolic blood pressure 82 mm[Hg] Dr. Pascual Mott Work Phone: [facility] 09-03-2023 15:54-0400 Heart rate 73 /min Dr. Pascual Mott Work Phone: [facility] 09-03-2023 15:54-0400 Respiratory rate 16 /min Dr. Pascual Mott Work Phone: [facility] 09-03-2023 15:54-0400 Systolic blood pressure 134 mm[Hg] Dr. Pascual Mott Work Phone: [facility] 02-05-2023 15:56-0400 Body height 172.[address] Pascual Mott Work Phone: [facility] 02-05-2023 15:56-0400 Body mass index (BMI) [Ratio] 34.9 kg/m2 Dr. Pascual Mott Work Phone: [facility] 02-05-2023 15:56-0400 Body temperature 98.6 [degF] Dr. Pascual Mott Work Phone: [facility] 02-05-2023 15:56-0400 Body weight 104.[address] Pascual Mott Work Phone: [facility] 02-05-2023 15:56-0400 Diastolic blood pressure 72 mm[Hg] Dr. Pascual Mott Work Phone: [facility] 02-05-2023 15:56-0400 Heart rate 84 /min Dr. Pascual Mott Work Phone: [facility] 02-05-2023 15:56-0400 Respiratory rate 18 /min Dr. Pascual Mott Work Phone: [facility] 02-05-2023 15:56-0400 SaO2% (BldA) [Mass fraction] 96 % Dr. Pascual Mott Work Phone: [facility] 02-05-2023 15:56-0400 Systolic blood pressure 124 mm[Hg] Dr. Pascual Mott Work Phone: [facility] 01-14-2023 12:10-0400 Body temperature 97 [degF] Dr. Pascual Mott Work Phone: [facility] 01-14-2023 12:10-0400 Diastolic blood pressure 81 mm[Hg] Dr. Pascual Mott Work Phone: [facility] 01-14-2023 12:10-0400 Heart rate 67 /min Dr. Pascual Mott Work Phone: [facility] 01-14-2023 12:10-0400 Respiratory rate 18 /min Dr. Pascual Mott Work Phone: [facility] 01-14-2023 12:10-0400 SaO2% (BldA) [Mass fraction] 94 % Dr. Pascual Mott Work Phone: [facility] 01-14-2023 12:10-0400 Systolic blood pressure 119 mm[Hg] Dr. Pascual Mott Work Phone: [facility] 01-14-2023 10:38-0400 Body height 172.[address] Pascual Mott Work Phone: [facility] 01-14-2023 10:38-0400 Body mass index (BMI) [Ratio] 35 kg/m2 Dr. Pascual Mott Work Phone: [facility] 01-14-2023 10:38-0400 Body weight 104.[address] Pascual Mott Work Phone: [facility] 10-17-2022 11:19-0400 Body mass index (BMI) [Ratio] 35.4 kg/m2 Dr. Pascual Mott Work Phone: [facility] 10-17-2022 11:19-0400 Body weight 108.[address] Pascual Mott Work Phone: [facility] 10-17-2022 11:19-0400 Diastolic blood pressure 89 mm[Hg] Dr. Pascual Mott Work Phone: [facility] 10-17-2022 11:19-0400 Heart rate 76 /min Dr. Pascual Mott Work Phone: [facility] 10-17-2022 11:19-0400 SaO2% (BldA) [Mass fraction] 94 % Dr. Pascual Mott Work Phone: [facility] 10-17-2022 11:19-0400 Systolic blood pressure 155 mm[Hg] Dr. Pascual Mott Work Phone: [facility] 07-30-2022 15:30-0500 Body height 175.[address] Pascual Mott Work Phone: [facility] 07-30-2022 15:30-0500 Body mass index (BMI) [Ratio] 35.1 kg/m2 Dr. Pascual Mott Work Phone: [facility] 07-30-2022 15:30-0500 Body temperature 99 [degF] Dr. Pascual Mott Work Phone: [facility] 07-30-2022 15:30-0500 Body weight 107.[address] Pascual Mott Work Phone: [facility] 07-30-2022 15:30-0500 Diastolic blood pressure 82 mm[Hg] Dr. Pascual Mott Work Phone: [facility] 07-30-2022 15:30-0500 Heart rate 79 /min Dr. Pascual Mott Work Phone: [facility] 07-30-2022 15:30-0500 Respiratory rate 16 /min Dr. Pascual Mott Work Phone: [facility] 07-30-2022 15:30-0500 SaO2% (BldA) [Mass fraction] 97 % Dr. Pascual Mott Work Phone: [facility] 07-30-2022 15:30-0500 Systolic blood pressure 146 mm[Hg] Dr. Pascual Mott Work Phone: [facility] 09-21-2021 07:51-0400 Body temperature 97.9 [degF] Dr. Pascual Mott Work Phone: [facility] Work Phone: 09-21-2021 07:51-0400 Diastolic blood pressure 76 mm[Hg] Dr. Pascual Mott Work Phone: [facility] Work Phone: 09-21-2021 07:51-0400 Heart rate 76 /min Dr. Pascual Mott Work Phone: [facility] Work Phone: 09-21-2021 07:51-0400 Respiratory rate 16 /min Dr. Pascual Mott Work Phone: [facility] Work Phone: 09-21-2021 07:51-0400 SaO2% (BldA) [Mass fraction] 94 % Dr. Pascual Mott Work Phone: [facility] Work Phone: 09-21-2021 07:51-0400 Systolic blood pressure 120 mm[Hg] Dr. Pascual Mott Work Phone: [facility] Work Phone: 09-21-2021 06:24-0400 Body height 175.[address] Pascual Mott Work Phone: [facility] Work Phone: 09-21-2021 06:24-0400 Body mass index (BMI) [Ratio] 34.6 kg/m2 Dr. Pascual Mott Work Phone: [facility] Work Phone: 09-21-2021 06:24-0400 Body weight 106.[address] Pascual Mott Work Phone: [facility] Work Phone: 07-25-2021 12:53-0500 Body mass index (BMI) [Ratio] 36.5 kg/m2 Dr. Pascual Mott Work Phone: [facility] Work Phone: 07-25-2021 12:53-0500 Body temperature 97.4 [degF] Dr. Pascual Mott Work Phone: [facility] Work Phone: 07-25-2021 12:53-0500 Body weight 108.[address] Pascual Mott Work Phone: [facility] Work Phone: 07-25-2021 12:53-0500 Diastolic blood pressure 86 mm[Hg] Dr. Pascual Mott Work Phone: [facility] Work Phone: 07-25-2021 12:53-0500 Heart rate 73 /min Dr. Pascual Mott Work Phone: [facility] Work Phone: 07-25-2021 12:53-0500 Respiratory rate 16 /min Dr. Pascual Mott Work Phone: [facility] Work Phone: 07-25-2021 12:53-0500 SaO2% (BldA) [Mass fraction] 99 % Dr. Pascual Mott Work Phone: [facility] Work Phone: 07-25-2021 12:53-0500 Systolic blood pressure 152 mm[Hg] Dr. Pascual Mott Work Phone: [facility] Work Phone: 06-27-2021 13:30-0500 Body mass index (BMI) [Ratio] 36.5 kg/m2 Dr. Pascual Mott Work Phone: [facility] Work Phone: 06-27-2021 13:30-0500 Body temperature 98.1 [degF] Dr. Pascual Mott Work Phone: [facility] Work Phone: 06-27-2021 13:30-0500 Body weight 108.[address] Pascual Mott Work Phone: [facility] Work Phone: 06-27-2021 13:30-0500 Diastolic blood pressure 86 mm[Hg] Dr. Pascual Mott Work Phone: [facility] Work Phone: 06-27-2021 13:30-0500 Heart rate 83 /min Dr. Pascual Mott Work Phone: [facility] Work Phone: 06-27-2021 13:30-0500 Respiratory rate 18 /min Dr. Pascual Mott Work Phone: [facility] Work Phone: 06-27-2021 13:30-0500 SaO2% (BldA) [Mass fraction] 95 % Dr. Pascual Mott Work Phone: [facility] Work Phone: 06-27-2021 13:30-0500 Systolic blood pressure 150 mm[Hg] Dr. Pascual Mott Work Phone: [facility] Work Phone: 06-25-2021 16:32-0500 Body temperature 98.42 [degF] MIRLANDE ARRIAGA DO [facility] 06-25-2021 16:32-0500 Body weight 111.4 kg MIRLANDE ARRIAGA DO [facility] 06-25-2021 16:32-0500 Diastolic blood pressure 93 mm[Hg] MIRLANDE ARRIAGA DO [facility] 06-25-2021 16:32-0500 Heart rate 95 /min MIRLANDE ARRIAGA DO [facility] 06-25-2021 16:32-0500 Respiratory rate 18 /min MIRLANDE ARRIAGA DO [facility] 06-25-2021 16:32-0500 Systolic blood pressure 155 mm[Hg] MIRLANDE ARRIAGA DO [facility] Encounters Encounter Date Encounter Type Care Provider Facility Start: 10-29-2024 End: 10-29-[address] Pascual Mott DO Work Phone: [facility] Work Phone: Start: 10-29-2024 End: 10-29-[address] Fernando Disla MD -Laboratory Work Phone: Start: 10-29-2024 End: 10-29-2024 ambulatory Pascual Mott Facility:[facility] Start: 2024 End: 2024 Patient encounter procedure Royal Gar [place] [facility] [facility] Work Phone: Start: 2024 End: 2024 ambulatory Pascual Mott Facility:[facility] Start: 04-26-2024 End: 04-26-2024 ambulatory Yessica Case Facility:[facility] Start: 03-09-2024 End: 03-09-2024 ambulatory Pascual Mott Facility:[facility] Start: 03-03-2024 End: 03-03-2024 ambulatory Pascual Mott Facility:[facility] Start: 03-03-2024 End: 03-03-2024 ambulatory Pascual Mott Facility:[facility] Start: 01-29-2024 End: 01-29-2024 ambulatory Fernando Disla Facility:[facility] Start: 09-05-2023 End: 09-05-[address] Pascual Mott Work Phone: [facility] Work Phone: Start: 09-03-2023 End: 09-03-[address] Pascual Mott Work Phone: [facility] Work Phone: Start: 09-03-2023 End: 09-03-[address] Pascual Mott Work Phone: [facility] Work Phone: Start: 02-05-2023 End: 02-05-[address] Pascual Mott Work Phone: [facility] Work Phone: Start: 02-05-2023 End: 02-05-[address] Pascual Mott Work Phone: [facility] Work Phone: Start: 01-20-2023 End: 01-20-[address] Pascual Mott Work Phone: [facility] Work Phone: Start: 01-20-2023 End: 01-20-[address] Pascual Mott Work Phone: [facility]-Laboratory Work Phone: Start: 01-14-2023 Non-patient / Non-visit Dr. Pascual Mott Work Phone: [facility] Start: 01-14-2023 End: 01-14-2023 Admission to same day surgery center Dr. Pascual Mott Work Phone: [facility]End[facility] Work Phone: Start: 01-14-2023 End: 01-14-[address] Pascual Mott Work Phone: [facility] Work Phone: Start: 10-17-2022 End: 10-17-[address] Pascual Mott Work Phone: [facility] Work Phone: Start: 07-30-2022 End: 07-30-[address] Pascual Mott Work Phone: [facility] Work Phone: Start: 07-30-2022 End: 07-30-[address] Pascual Mott Work Phone: [facility] Start: 06-24-2022 End: 06-24-[address] Pascual Mott Work Phone: [facility] Start: 01-16-2022 End: 01-16-[address] Pascual Mott Work Phone: [facility] Work Phone: Start: 01-16-2022 End: 01-16-[address] Pascual Mott Work Phone: [facility] Start: 10-05-2021 End: 10-05-[address] Pascual Mott Work Phone: [facility] Start: 09-21-2021 Non-patient / Non-visit Dr. Pascual Mott Work Phone: [facility] Start: 09-21-2021 End: 09-21-2021 Admission to same day surgery center Dr. Pascual Mott Work Phone: [facility] Start: 08-09-2021 End: 08-09-[address] Pascual Mott Work Phone: [facility] Start: 07-25-2021 End: 07-25-[address] Pascual Mott Work Phone: [facility] Start: 06-27-2021 End: 06-27-[address] Pascual Mott Work Phone: [facility] Start: 06-27-2021 End: 06-27-[address] Pascual Mott Work Phone: [facility] Start: 06-25-2021 End: 06-25-2021 Emergency department patient visit MIRLANDE ARRIAGA DO [facility] Procedures Date Procedure Procedure Detail Performing Clinician Start: 10-29-2024 Assay of prostate specific antigen total Dr. Pascual Mott DO Work Phone: Comment on above: This test was performed using the [employer] tPSA method. Measured values of a patient sample can vary depending on the testing procedure used. PSA values determined on patient samples by different testing procedures cannot be used interchangeably. If there is a change in PSA assays while monitoring therapy, sequential testing should be performed to confirm baseline values. Start: 01-14-[address] Pascual foy Work Phone: Start: 09-21-[address] Pascual foy Work Phone: Start: 06-27-2021 X-ray of cervical spine Dr. Pascual childress Work Phone: Plan of Treatment Date Care Activity Detail Author Start: 01-14-2023 Egd insert guide wir e dilator passage esophagus EGD GUIDE WIRE INSERTION [facility] Start: 01-14-2023 Egd transoral biopsy single/multiple EGD BIOPSY SINGLE/MULTIPLE [facility] Start: 01-14-2023 Patient discharge [facility] Start: 07-25-2021 Patient referral [facility] Work Phone: Patient referral [facility] Work Phone: Immunizations Immunization Date Immunization Notes Care Provider [facility] 08-24-2020 Covid (Pfizer) Dr. Pascual foy Work Phone: [facility] 08-03-2020 Covid (Pfizer) Dr. Pascual foy Work Phone: [facility] Payers Date Payer Category Payer Self-pay [id number] [id number] [facility] [id number] 2011 Unknown [id number] Unknown [id number] 2.16.8 [id number] Unknown [id number] 2.16.8 [id number] Unknown [id number] 2.16.8 [id number] Unknown [id number] 2.16.8 [id number] Unknown [id number] 2.16.8 [id number] Unknown [id number] 2.16.8 [id number] Unknown [id number] [id number] [id number] Social History Date Type Detail Facility [facility] Start: 1945 Sex Assigned At Male [facility] Start: 09-19-2021 End: 09-05-2023 Tobacco smoking status NHIS Unknown if ever smoked [facility] Start: 09-05-2023 Tobacco smoking stat NHIS Never smoked tobacco (finding) [facility] Goals Date Patient Goal Desired Activity /State Mental Status Date Assessment Result Facility 01-14-2023 Cognitive function Level Of Consciousness Sedated [facility] Work Phone: 01-14-2023 Cognitive function Voice/Name [facility] Work Phone: 09-21-2021 Cognitive function Voice/Name [facility] Work Phone: Clinical Notes 06-25-2021 to 2024 Note Date & Type Note Facility 2024 Evaluation note Diagnosis Onset Date Resolution Barretts esophagus chronic 2024 8:01am Dysphagia chronic September 07 8:01am Eosinophilic esophagitis chronic 2024 8:01am [facility] Work Phone: 1(295) 407-897308-22-2023 Procedure [facility] 01-14-2023 Procedure [facility]01-31-2022 Hospital Discharge instructions Patient Education 06/25/2021 18:17:03 Scalp Contusion Scalp Contusion A contusion is another word for bruise. It develops when small blood vessels break open and leak blood into the nearby area. A scalp contusion can result from a bump, hit, or fall. Symptoms can include changes in skin color (bruising). For instance, the skin may turn blue or black. Swelling and pain may also occur. The swelling from the contusion should go down in a few days. Bruising and pain may take longer to go away. Home care General care You may use acetaminophen to control pain, unless another pain medicine was prescribed. Don t take aspirin or NSAIDs (nonsteroidal anti-inflammatory drugs) or anticoagulants such as warfarin without talking to your provider first. These medicines increase the risk of bleeding. To help reduce swelling and pain, apply a cold source to the injured area for up to 20 minutes at atime. Do this as often as directed. Use a cold pack or bag of ice wrapped in a thin towel. Never put a cold source directly on your skin. If you have cuts or scrapes around the site of the contusion, be sure to care for them as directed. Note about concussion Because the injury was to your head, it is possible that you could have a concussion (mild brain injury). Symptoms of a concussion can show up later. For this reason, be alert for symptoms of concussion once you re home. Seek emergency medical care if you have any of the symptoms below over the next hours to days: Headache Nausea or vomiting Dizziness Sensitivity to light or noise Unusual sleepiness or grogginess Trouble falling asleep Personality changes Vision changes Memory loss Confusion Trouble walking or clumsiness Loss of consciousness (even for a short time) Inability to be awakened During the time period that you re watching for concussion symptoms: Don t drink alcohol or use sedatives or medicines that make you sleepy. Don t drive or operate machinery. Don t do anything strenuous, such as heavy lifting or straining. Limit tasks that require concentration. This includes reading, watching TV, using a smartphone or computer, and playing video games. Don t return to sports, exercise, or other activity that could result in another injury. Ask your healthcare provider when you can safely resume these activities. Follow-up care Follow up with your healthcare provider, or as directed. If imaging tests were done, they will be reviewed by a doctor. You will be told the results and any new findings that may affect your care. When to seek medical advice Call your healthcare provider right away if any of these occur: Pain that worsens or that can t be relieved with medicines New or increased swelling or bruising Fever of 100.4 F (38 C) or higher, or as directed by your healthcare provider Redness, warmth, or drainage from the injured area Any depression or bony abnormality in the injured area Fluid drainage or bleeding from the nose or ears Call 911 Call 911 right away if any of these occur: Stiff neck Weakness or numbness in any part of the body Seizures [id number] [employer] [address] [place] [address]. All rights reserved. This information is not intended as a substitute for professional medical care. Always follow yourhealthcare professional's instructions. 06/25/2021 18:16:59 Head Injury (Adult) Head Injury (Adult) You have a head injury. It does not appear serious at this time. But symptoms of a more serious problem, such as a mild brain injury (concussion) or bruising or bleeding in the brain, may appear later. For this reason, you or someone caring for you will need to watch for the symptoms listed below. Once you re home, also be sure to follow any care instructions you re given. Home care Watch for the following symptoms Seek emergency medical care if you have any of these symptoms over the next hours to days: Headache Nausea or vomiting Dizziness Sensitivity to light or noise Unusual sleepiness or grogginess Trouble falling asleep Personality changes Vision changes Memory loss Confusion Trouble walking or clumsiness Loss of consciousness (even for a short time) Inability to be awakened Stiff neck Weakness or numbness in any part of the body Seizures General care If you were prescribed medicines for pain, use them as directed. Note: Don t take other medicines for pain without talking to your provider first. To help reduce swelling and pain, apply a cold source to the injured area for up to 20 minutes at atime. Do this as often as directed. Use a cold pack or bag of ice wrapped in a thin towel. Never apply a cold source directly to the skin. If you have cuts or scrapes as a result of your head injury, care for them as directed. For the next 24 hours (or longer, if instructed): oDon t drink alcohol or use sedatives or other medicines that make you sleepy. oDon t drive or operate machinery. oDon t do anything strenuous, such as heavy lifting or straining. oLimit tasks that require concentration. This includes reading, using a smartphone or computer, watching TV, and playing video games. oDon t return to sports or other activities that could result in another head injury. Follow-up care Follow up with your healthcare provider, or as directed. If imaging tests were done, they will be reviewed by a doctor. You will be told the results and any new findings that may affect your care. When to seek medical advice Call your healthcare provider right away if any of these occur: Pain doesn t get better or worsens New or increased swelling or bruising Fever of 100.4 F (38 C) or higher, or as directed by your provider Increased redness, warmth, drainage, or bleeding from the injured area Fluid drainage or bleeding from the nose or ears Any depression or bony abnormality in the injured area Persistent confusion or lethargy Bruising behind the ears or bruising around the eyes [phone] [employer] [address] [place] [address]. All rights reserved. This information is not intended as a substitute for professional medical care. Always follow yourkettering healthcare professional's instructions. 06/25/2021 18:16:23 Rib Contusion Rib Contusion A rib contusion is a bruise to one or more rib bones. It may cause pain, tenderness, swelling and apurplish discoloration. There may be a sharp pain while breathing. You will be assessed for other injuries. You will likely be given pain medicine. Rib contusions heal on their own, without further treatment. However, pain may take weeks to months to go away. Note that a small crack (fracture) in the rib may cause the same symptoms as a rib contusion. The small crack may not be seen on a chest X-ray. However, the conditions are managed in the same way. Home care Rest. Avoid heavy lifting, strenuous exertion, or any activity that causes pain. Ice the area to reduce pain and swelling. Put ice cubes in a plastic bag or use a cold pack. (Wrap the cold source in a thin towel. Do not place it directly on your skin.) Ice the injured area for 20minutes every 1 to 2 hours the first day. Continue with ice packs 3 to 4 times a day for the next 2days, then as needed for the relief of pain and swelling. Take any prescribed pain medicine as directed by your healthcare provider. If none was prescribed, take acetaminophen, ibuprofen, or naproxen to control pain. If you have a significant injury, you may be given a device called an incentive spirometer to keep your lungs healthy. Use as directed. Follow-up care Follow up with your healthcare provider during the next week or as directed. When to seek medical advice Call your healthcare provider for any of the following: Shortness of breath or trouble breathing Increasing chest pain with breathing Coughing Dizziness, weakness, or fainting New or worsening pain Fever of 100.4 F (38 C) or higher, or as directed by your healthcare provider [phone] [employer] [address] [place] [address]. All rights reserved. This information is not intended as a substitute for professional medical care. Always follow yourhealthcare professional's instructions. 06/25/2021 18:16:18 Shoulder Sprain Shoulder Sprain A sprain is a stretching or tearing of the ligaments that hold a joint together. A sprain may take up to 8 weeks to fully heal, depending on how severe it is. Moderate to severe shoulder sprains are treated with a sling or shoulder immobilizer. Minor sprains can be treated without any special support. Home care The following guidelines will help you care for your injury at home: If a sling was given to you, leave it in place for the time advised by your healthcare provider. Ifyou aren t sure how long to wear it, ask for advice. If the sling becomes loose, adjust it so that your forearm is level with the ground. Your shoulder should feel well supported. Put an ice pack on the injured area for 20 minutes every 1 to 2 hours the first day. You can make your own ice pack by putting ice cubes in a plastic bag. A bag of frozen peas or something similar works well too. Wrap the bag in a thin towel. Continue with ice packs 3 to 4 times a day for the next 2 to 3 days. Then use the pack as needed to ease pain and swelling. You may use acetaminophen or ibuprofen to control pain, unless another pain medicine was prescribed. If you have chronic liver or kidney disease, talk with your healthcare provider before using thesemedicines. Also talk with your provider if you ve had a stomach ulcer or gastrointestinal bleeding. Shoulder joints become stiff if left in a sling for too long. You should start range of motion exercises about 7 to 10 days after the injury. Talk with your provider to find out what type of exercises to do and how soon to start. Follow-up care Follow up with your healthcare provider, or as advised. Any X-rays you had today don t show any broken bones, breaks, or fractures. Sometimes fractures dont show up on the first X-ray. Bruises and sprains can sometimes hurt as much as a fracture. These injuries can take time to heal completely. If your symptoms don t improve or they get worse, talk with your provider. You may need a repeat X-ray or other treatments. When to seek medical advice Call your healthcare provider right away if any of these occur: Shoulder pain or swelling in your arm that gets worse Fingers become cold, blue, numb, or tingly Large amount of bruising of the shoulder or upper arm Fever or chills [phone] [employer] [address] [place] [address]. All rights reserved. This information is not intended as a substitute for professional medical care. Always follow yourhealthcare professional's instructions. 06/25/2021 18:16:12 Head Injury (Adult) Head Injury (Adult) You have a head injury. It does not appear serious at this time. But symptoms of a more serious problem, such as a mild brain injury (concussion) or bruising or bleeding in the brain, may appear later. For this reason, you or someone caring for you will need to watch for the symptoms listed below. Once you re home, also be sure to follow any care instructions you re given. Home care Watch for the following symptoms Seek emergency medical care if you have any of these symptoms over the next hours to days: Headache Nausea or vomiting Dizziness Sensitivity to light or noise Unusual sleepiness or grogginess Trouble falling asleep Personality changes Vision changes Memory loss Confusion Trouble walking or clumsiness Loss of consciousness (even for a short time) Inability to be awakened Stiff neck Weakness or numbness in any part of the body Seizures General care If you were prescribed medicines for pain, use them as directed. Note: Don t take other medicines for pain without talking to your provider first. To help reduce swelling and pain, apply a cold source to the injured area for up to 20 minutes at atime. Do this as often as directed. Use a cold pack or bag of ice wrapped in a thin towel. Never apply a cold source directly to the skin. If you have cuts or scrapes as a result of your head injury, care for them as directed. For the next 24 hours (or longer, if instructed): oDon t drink alcohol or use sedatives or other medicines that make you sleepy. oDon t drive or operate machinery. oDon t do anything strenuous, such as heavy lifting or straining. oLimit tasks that require concentration. This includes reading, using a smartphone or computer, watching TV, and playing video games. oDon t return to sports or other activities that could result in another head injury. Follow-up care Follow up with your healthcare provider, or as directed. If imaging tests were done, they will be reviewed by a doctor. You will be told the results and any new findings that may affect your care. When to seek medical advice Call your healthcare provider right away if any of these occur: Pain doesn t get better or worsens New or increased swelling or bruising Fever of 100.4 F (38 C) or higher, or as directed by your provider Increased redness, warmth, drainage, or bleeding from the injured area Fluid drainage or bleeding from the nose or ears Any depression or bony abnormality in the injured area Persistent confusion or lethargy Bruising behind the ears or bruising around the eyes [phone] [employer]. [address] [place] [address], [place] [address]. All rights reserved. This information is not intended as a substitute for professional medical care. Always follow yourhealthcare professional's instructions. 06/25/2021 18:16:08 Fall, Mechanical Mechanical Fall You have had a fall today. It appears that the cause is what is called mechanical. That means that you slipped, tripped, or lost your balance. If your fall had been because of fainting or a seizure, you might need other tests. It is normal to feel sore and tight in your muscles and back the next day, and not just the musclesyou injured at first. Remember, all the parts of your body are connected, so while initially one area hurts, the next day another may hurt. Also, when you injure yourself, it causes inflammation, which then causes the muscles to tighten up and hurt more. After the initial worsening, it should gradually improve over the next few days. Do report more severe pain. Even without a definite head injury, you can still get a concussion from your head suddenly jerkingforward, backward, or sideways when falling. Concussions and even bleeding can still happen, especially if you have had a recent injury or take blood thinner medicine. It is not unusual to have a mild headache and feel tired and even nauseous or dizzy. Home care Rest today and go back to your normal activities when you are feeling back to normal. If you were injured during the fall, follow the advice from your healthcare provider regarding careof your injury. At first, do not try to stretch out the sore spots. If there is a strain, stretching may make it worse. Massage may help relax the muscles without stretching them. You can use an ice pack or cold compress on and off to the sore spots 10 to 20 minutes at a time, as often as you feel comfortable. This may help reduce the inflammation, swelling and pain. If you have any scrapes or abrasions, they usually heal within 10 days. It is important to keep theabrasions clean while they initially start to heal. However, an infection may happen even with proper care, so watch for early signs of infection (such as warmth, redness, or swelling). Medicines Talk to your healthcare provider before taking new medicines, especially if you have other medical problems or are taking other medicines. If you need anything for pain, you can take acetaminophen or ibuprofen, unless you were given a different pain medicine to use. Talk with your healthcare provider before using these medicines if you have chronic liver or kidney disease, or ever had a stomach ulcer or gastrointestinal bleeding, or are taking blood thinner medicines. Be careful if you are given prescription pain medicines, narcotics, or medicine for muscle spasm. They can make you sleepy and dizzy, and can affect your coordination, reflexes, and judgment. Do not drive or do work where you can injure yourself when taking them. Fall prevention Fix, remove, or replace anything that caused your fall. Make your home safe by keeping walkways clear of objects you may trip over. Use nonslip pads under rugs. Don't use small area rugs or throw rugs. Don't walk in poorly lit areas. Don't stand on chairs or wobbly ladders. Use caution when reaching overhead or looking upward. This position can cause a loss of balance. Be sure your shoes fit properly, have nonslip bottoms and are in good condition. Be cautious when going up and down curbs, and walking on uneven sidewalks. If your balance is poor, consider using a cane or walker. Stay as active as you can. Balance, flexibility, strength, and endurance all come from exercise. They all play a role in preventing falls. If you have pets, know where they are before you stand up or walk so you don't trip over them. Limit alcohol intake. Alcohol can cause balance problems and increase the risk of falls. Use night lights. Have your eyes tested to be sure you are seeing well, even if you already wear glasses. Follow-up Follow up with your healthcare provider, or as advised. If X-rays or CT scans were done, you will be notified if there is a change in the reading, especially if it affects treatment. Call 911 Call 911 if any of these happen: Trouble breathing Confused or difficulty arousing Fainting or loss of consciousness Rapid or very slow heart rate Seizure Difficulty with speech or vision, weakness of an arm or leg Difficulty walking or talking, loss of balance, numbness or weakness in one side of your body, or facial droop When to seek medical advice Call your healthcare provider right away if any of these happen: Repeated mechanical falls, or unexplained falls Dizziness Severe headache Blood in vomit, stools (black or red color) [id number] [employer]. [address] [place] [address]. All rights reserved. This information is not intended as a substitute for professional medical care. Always follow yourhealthcare professional's instructions. Follow Up Care 06/25/2021 16:11:21 With:MIGUE COLEY MD Address: [address] [place] [phone] When:2-4 days [facility] Evaluation + Plan note No data available for this section [facility] Evaluation note* Diagnosis Onset Date Resolution Status Fall acute Left shoulder strain acute Neck pain acute Dysphagia acute Left shoulder strain acute Dysphagia acute FH: colon cancer acute FH: esophageal cancer acute [facility] Work Phone: Evaluation note* Diagnosis Onset Date Resolution Status Barretts esophagus acute Dysphagia acute Eosinophilic esophagitis acu te FH: colon cancer acute FH: esophageal cancer acute [facility] Work Phone: Evaluation note* Diagnosis Onset Date Resolution Status Barretts esophagus chronic Dysphagia chronic Eosinophilic esophagitis chr onic Acquired hypothyroidism 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 Work Phone: Evaluation note* Diagnosis Onset Date Resolution Status Barretts esophagus chronic Dysphagia chronic Eosinophilic esophagitis chr onic GERD (gastroesophageal reflux disease) 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 Barretts esophagus chronic CKD (chronic kidney disease) stage 3, GFR 30-59 ml/min chronic Hypertension chronic Barretts esophagus chronic Dysphagia chronic Eosinophilic esophagitis chr onic [facility] Work Phone: History and physical note Author Royal Gar [facility] January 14, 2023 11:22am Note Date/Time January 14, 2023 11 :22am [facility] Medical Records Department [address] [place] [id number] History & Physical Exam 01/14/23 1122 MR#: [id number] Acct: [id number] Name: HARSHAD CHAND Rep #:[id number] : 1945 77 From: Royal Gar DO PCP: Dr. Pascual Mott, DO Status:[facility] Location: [place] [address] History and Physical Date of Admission: 01/14/23 HARSHAD CHAND, is a 77 M who presents to the office today for f/u dysphagia, GERD, Ipnedo's, EOE. He does have poor motility along with a tortuous esophagusin the setting of eosinophilic esophagitis.?He remains on pantoprazole 40 mg daily, no heartburn or acid reflux. He chronically has hoarse voice. No change in his dysphagia, bread and meat is especially problematic. No CP or abd pain. No nausea, vomiting, early satiety. Bowels are fine. Harshad established with this clinic 08.09.21 for evaluation of dysphagia for several months with severity progression. No emergent intervention required. FH includes daughter who is r/t esophageal cancer at age 37; father colon cancer. EGD 09.21.21 with LA Grade B reflux esophagitis with metaplasia/Pinedo?s esophagus (Ki-67+) and Eosinophilic Esophagitis; moderate Schatzki ring, dilatedto 60F; medium amount of phytobezoar in stomach; duodenal Deepa gland hyperplasia polyp; duodenal stricture. ROS Const Constitutional: No fatigue ENT ENT: Positive for difficulty swallowing Gastro GI: Positive for difficulty swallowing; No abdominal pain, belching, bloating, change in bowel habits, change in stool character, coffee ground emesis, constipation, cramping, diarrhea, heartburn, feeling full early, excessive flatus, incontinent of stools, Vomiting blood/hematemesis, Blood in stool, loose stools, Black,tarry stools, nausea/dyspepsia, pain with swallowing, vomiting or other Musc Musculoskeletal: No joint pain Skin Skin: No yellowing of the eye or itchy eyes Psych Psychiatric: No anxiety and No depression Endo Endocrine: No fatigue Aller/Imm Allergy/Immunologic: No itchy eyes Jackson/Lymp Hematologic/Lymphatic: No easy bleeding or easy bruising Exam Const General: cooperative and comfortable Nutritional Appearance: obese Orientation: alert, awake and oriented x3 Quality Reporting Tobacco Screening ([facility] 138) Smoking Status: Never smoker Assessment and Plan Assessment and Plan (1) Dysphagia: Status: Chronic Plan: Multifactorial--EOE, GERD/Pinedo's, tortuous esophagus, poor motility Info re Dupixent for EIE Schedule repeat EGD Continue pantoprazole QAM (2) Barretts esophagus: Status: Chronic Plan: see above (3) Eosinophilic esophagitis: Status: Chronic Plan: see above (4) GERD (gastroesophageal reflux disease): Status: Chronic Plan: see above I have examined the patient and the H&P has been reviewed. There are no clinicalchanges since date of exam. 01/14/23 1122 <Electronically signed by Royal Gar DO> Cosigner Signature (if applicable): CC: Dr. Pascual Mott DO; Royal Gar DO~ Signed [facility] Work Phone: Reason for referral (narrative)No reason for referral information [facility] Work Phone: Summary Purpose Family History No Family History Records Found Relationship Condition Age at Onset Recorded Date/T tenisha grandfather Cardiac disease Unknown grandmother Cerebrovascular accident (CVA) Unknown father Malignant neoplasm of colon Unknown daughter Malignant neoplasm Unknown Advance Directives No Advanced Directives Records Found Advance Directive Response Recorded Date/ Time Advance Directives No November 08 8:11am Living Will No September 19, 2021 2:33pm Power of Patternmaker Helper No September 19 2:33pm Advance Directive Response Recorded Date/ Time Name of Medical Power of Patternmaker Helper POA January 08, 2023 2:37pm Advance Directives No November 08 8:11am Living Will Yes January 08 3 2:37pm Power of Patternmaker Helper Yes January 08, 2 023 2:37pm Advance Directive Response Recorded Date/ Time Advance Directives No November 08 8:11am Living Will Yes January 08 3 2:37pm Power of Patternmaker Helper Yes January 08, 2 023 2:37pm Advance Directive Response Recorded Date/ Time Living Will Yes January 08 3 2:37pm Do you have a Healthcare Power of Patternmaker Helper? Yes January 08, 2023 2:37pm Advance Directives No November 08 8:11am Chief Complaint and Reason for Visit Chief Complaint er f/u - fall EORDER- CERV SPINE- FALL difficulty swallowing Dysphagia Reason for Visit Fall Left shoulder strain Neck pain Dysphagia Left shoulder strain Dysphagia FH: colon cancer FH: esophageal cancer Chief Complaint 2 WK FU Reason for Visit Barretts esophagus Dysphagia Eosinophilic esophagitis FH: colon cancer FH: esophageal cancer Chief Complaint 3 MO FU 6 M FU Reason for Visit Barretts esophagus Dysphagia Eosinophilic esophagitis Acquired hypothyroidism Barretts esophagus Hypertension Chief Complaint 4 MO FU Reason for Visit Barretts esophagus Dysphagia Eosinophilic esophagitis GERD (gastroesophageal reflux disease) Chief Complaint [address] OFFICE TO FAX 1 HR AGO Reason for Visit Barretts esophagus Dysphagia Eosinophilic esophagitis GERD (gastroesophageal reflux disease) Chief Complaint [address] OFFICE TO FAX 1 HR AGO 6 M FU Reason for Visit Barretts esophagus Dysphagia Eosinophilic esophagitis GERD (gastroesophageal reflux disease) Acquired hypothyroidism Barretts esophagus Hypertension Chief Complaint 6 M FU 6 MO FU Reason for Visit Acquired hypothyroid ism Barretts esophagus CKD (chronic kidney disease) stage 3, GFR 30-59 ml/min Hypertension Barretts esophagus Dysphagia Eosinophilic esophagitis Chief Complaint Admit Date 6 M FU 2024 8:0 1am LABS October 29, 2024 9:20a m Reason for Visit Admit Date Barretts esophagus 2024 8:0 1am Dysphagia 2024 8:0 1am Eosinophilic esophagitis September 07 8:01am Additional Source Comments (unrecognized sect ion and content) No Status Records FoundNo Status Records Found INFORMATION SOURCE (unrecogn ized section and content) DATE CREATED AUTHOR 06/27/2021 [employer] ([place]) DATE CREATED AUTHOR AUTHOR'S ORGANIZ ATION 11/02/2024 [facility] Goals (unrecognized section and content) Goals may be documented in a n alternate section Care Teams (unrecognized sec tion and content) Team Status: Active Member Role Status Dates Dr. Pascual Mott DO Family Provider Active Dr. Pascual Mott , DO Primary Care Provider Active Team Status: Inactive Member Role Status Dates Dr. Pascual Mott DO Primary Care Pr ovider, Attending Provider, Referring Provider Active Team Status: Inactive Member Role Status Dates Dr. Pascual Mott DO Primary Care Provider, Referr ing Provider Active Dr. Royal Gar , DO Attending Provider Active Team Status: Inactive Member Role Status Dates Dr. 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 Pascual Mott DO Primary Care Provider, Referr ing Provider Active Dr. Royal Gar , DO Attending Provider, Other Prov ider Active Team Status: Inactive Member Role Status Dates Dr. Pascual Mott DO Primary Care Provider Active Dr. Fernando Disla MD Attending Provider, Referr ing Provider Active Team Status: Active Member Role Status Dates Dr. Pascual Mott DO Primary Care Provider Active Team Status: Inactive Member Role Status Dates Dr. Pascual Mott DO Primary Care Provider Active Start: 2024 End: 2024 Dr. Pascual Mott DO Referring Provider Active Start: 2024 End: 2024 Dr. Royal Gar , Attending Provider Active Start: 2024 End: 2024 Team Status: Inactive Member Role Status Dates Dr. Pascual Mott DO Primary Care Provider Active Start: October 29, 2024 End: October 29, 2024 Dr. Fernando Disla MD Attending Provider Active Start: October 29, 2024 End: October 29, 2024 Dr. Fernando Disla MD Referring Provider Active Start: October 29, 2024 End: October 29, 2024 FOR RECORDS PERTAINING TO PATIENTS WHO ARE OR HAVE BEEN ENROLLED IN A CHEMICAL DEPENDENCY/SUBSTANCEABUSE PROGRAM, SOME INFORMATION MAY BE OMITTED. This clinical summary was aggregated from multiple sources. Caution should be exercised in using it in the provision of clinical care. This summary normalizes information from multiple sources, and as a consequence, information in this document may materially change the coding, format and clinical context of patient data. In addition, data may be omitted in some cases. CLINICAL DECISIONS SHOULD BE BASED ON THE PRIMARY CLINICAL RECORDS. [facility] [employer] provides no warranty or guarantee of the accuracy or completeness of information in this document.
--- OUTSIDE RECORDS SUMMARY | 2025-03-15 17:06 | XMS RPT_ITS | CCD ---
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 Pascual Mott Primary Care Provider [phone] Dr. Pascual Mott Referring Provider Lion CONDE, SWITCHMAN SUPERVISOR-C David Attending Provider [phone] Dr. Pascual Mott Attending Provider Fatmata CONDE, SWITCHMAN SUPERVISOR-C Isis Hart Attending Provider [phone] Dr. [...] Dr. Pascual Mott Referring Provider Fatmata CONDE SWITCHMAN SUPERVISOR-C Isis Hart Attending Provider [phone] Dr. Royal Gar Attending Provider Dr. Royal Gar Other Provider [phone] Dr. Pascual Mott Attending Provider Dr. Pascual Mott Primary Care Provider [phone] Dr. Pascual Mott Attending Provider [phone] Dr. Pascual Mott Referring Provider [phone] Friend, Dr. Paige Attending Provider Dr. Pascual Mott DO Primary Care Provider [phone] Dr. Pascual Mott DO Referring Provider [phone] Rin BAIRES, Dr. Paige Attending Provider Naif ORELLANA, Dr. Fernando Barone Attending Provider Naif ORELLANA, Dr. Fernando Barone Referring Provider [phone] Brown, Pascual R Primary Care Unavailable Brown, Pascual R Attending Unavailable Brown, Pascual R Referring Unavailable NaifFernando Attending Unavailable Naif, Fernando Barone Referring Unavailable Brown, Pascual R Primary Care Unavailable Brown, Pascual R Primary Care Unavailable Brown, Pascual R Attending Unavailable Brown, Pascual R Referring Unavailable Brown, Pascual R Primary Care Unavailable Friend, Royal Attending Unavailable Brown, Pascual R Referring Unavailable [place], Yessica Attending Unavailable [place], Yessica Referring Unavailable Brown, Pascual R Primary [...] 11-16-2020 [facility] (Blood [place]uff[place] [facility] [place] .ROUTE .MEDSUPPLY November 16, 2020 [...] 06-0 PSA, DIAGNOSTIC 3.72 ng/mL Normal 0.00-4.00 [facility] Comment on above: Result Comment: This test was performed using the [employer] tPSA method. Measured values of a patient??sample can vary depending on the testing procedure used. PSA values determined on patient samples by different testing procedures cannot be used interchangeably. If there is a change in PSA assays while monitoring therapy, sequential testing should be performed to confirm baseline values. Performed By: #### L 501.9940 #### [facility] [address] [place], [address] Gastroenterology Visit Repor ton 2024 Gastroenterology Visit Report [facility] Gastroenterology [address] [place] [address] OFFICE VISIT Date of Service: 09/07/24 MR#: [id number] Acct: [id number] Name: HARSHAD CHAND Bhaskar Rep #: [id number] : 1945 Provider: Royal Gar DO Age/Sex: 79/M [place] [facility] [place] Status: Signed Intake Vital Signs 03/03/24 15:26 [...] change Al (more content not included)... Normal [facility] PSA Total+%Freeon 04-27-2024 PSA, FREE 0.99 ng/mL Normal N/A [facility] Comment on above: Result Comment: Roch marlen ECLIA methodology. Performed By: #### L 3110.0500 #### [facility] [address] [facility] [place], [address] PSA, FREE % 21.8 Normal . [facility] Comment on above: Result Comment: The table [...] any other population of men. Performed at: [facility] [address] [id number] Correctional Probation Officer: Augustine Rocha PhD, Phone: [phone] Performed By: #### L 3110.0500 #### [facility] [address] [facility] [place], [address] PSA, TOTAL ULTR 4.540 ng/mL Abnormal 0.000-4.000 [facility] Comment on above: Result Comment: Roch marlen ECLIA methodology. According to the [place] [employer], Serum PSA should decrease and [...] disease. Performed By: #### L 3110.0500 #### [facility] [address] [place], [address] Gastroenterology Visit Repor ton 03-09-2024 Gastroenterology Visit Report [facility] Gastroenterology [address] [address] OFFICE VISIT Date of Service: 03/09/24 MR#: [id number] Acct: [id number] Name: HARSHAD CHAND Rep #: [id number] : 1945 Provider: Royal Gar DO Age/Sex: 78/M Location[place] [facility] [place] Status: Signed Intake Vital Signs 09/03/23 15:54 [...] to the office today for follow up. *[facility] established 08.09.21 for evaluation of dysphagia for [...] Positive for (more content not included)... Normal [facility] Basic Metabolic Profile (BMP )on 03-03-2024 BUN/CRE 20.5 RATIO High -20 [facility] Comment on above: Performed By: #### L 500.2500, L501.9520, L506.0400 #### [facility] [address] [place], [address] CA,Total 8.6 mg/dL Normal 8.5-10.1 [facility] Comment on above: Performed By: #### L 500.2500, L501.9520, L506.0400 #### [facility] [address] [place], [address] Chloride [Moles/Vol] 111 mmol/L High 98-107 [facility] Comment on above: Performed By: #### L 500.2500, L501.9520, L506.0400 #### [facility] [address] [place], [address] CO2 [Moles/Vol] 23.0 mmol/L Normal 21.0-32.0 [facility] Comment on above: Performed By: #### L 500.2500, L501.9520, L506.0400 #### [facility] [address] [place], [address] Creatinine [Mass/Vol] 1.27 mg/dL Normal 0.70-1.30 [facility] Comment on above: Result Comment: The validity of the calculated GFR GFRAA in patients over 70 years has not been determined. Clinical correlation is essential. Performed By: #### L 500.2500, L501.9520, L506.0400 #### [facility] [address] [place], [address] EST GFR - AA 71 mL/min Normal >60 [facility] Comment on above: Result Comment: Afri can Kyrgyz GFR Calc Performed By: #### L 500.2500, L501.9520, L506.0400 #### [facility] [address] [place], [address] GAP 8 Normal 5-15 [facility] Comment on above: Performed By: #### L 500.2500, L501.9520, L506.0400 #### [facility] [address] [place], [address] GFR/1.73 sq M.predicted among non-blacks MDRD (S/P/Bld) [Vol rate/Area] 58 mL/min/{1.73_m2} Low >60 [facility] Comment on above: Result Comment: Non- GFR Calc Performed By: #### L 500.2500, L501.9520, L506.0400 #### [facility] [address] [place], [address] Glucose [Mass/Vol] 119 mg/dL High 74-106 [facility] Comment on above: Result Comment: Fast ing Glucose result from 100 to 125 mg/dL suggests IMPAIRED HOMEOSTASIS per A.D.A. criteria. Performed By: #### L 500.2500, L501.9520, L506.0400 #### [facility] [address] [place], [address] Potassium [Moles/Vol] 4.4 mmol/L Normal 3.5-5.1 [facility] Comment on above: Performed By: #### L 500.2500, L501.9520, L506.0400 #### [facility] [address] [place], [address] Sodium [Moles/Vol] 142 mmol/L Normal 136-145 [facility] Comment on above: Performed By: #### L 500.2500, L501.9520, L506.0400 #### [facility] [address] [place], [address] Urea nitrogen [Mass/Vol] 26 mg/dL High 7-18 [facility] Comment on above: Performed By: #### L 500.2500, L501.9520, L506.0400 #### [facility] [address] [place], [address] Internal Medicine Office Vis itomonroe 03-03-2024 Internal Medicine Office Visit [facility] [address] [place] [address] OFFICE VISIT Date of Service: 03/03/24 MR#: [id number] Acct: [id number] Name: HARSHAD CHAND Bhaskar Rep #: [id number] : 1945 Provider: Dr. 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 Declines flu vaccine. [facility] Medical History Wears hearing aid Prostate disease [...] Exam Const (more content not included)... Normal [facility] T4 Free Directon 03-03-2024 T4 FREE DIRECT 1.45 ng/dL Normal 0.76-1.46 [facility] Comment on above: Performed By: #### L 500.2500, L501.9520, L506.0400 #### [facility] [address] [place], [address] Thyroid Stim Hormone (TSH)on 03-03-2024 TSH 0.080 uIU/mL Low 0.358-3.740 [facility] Comment on above: Performed By: #### L 500.2500, L501.9520, L506.0400 #### [facility] [address] [place], [address] PSA,Total- Diagnosticon 09 PSA, DIAGNOSTIC 4.69 ng/mL High 0.0-4.0 [facility] Comment on above: Result Comment: This test was performed using the TPSA assay method for the [employer] chemistry system. Values obtained with different assay methods cannot be used interchangably. When changing PSA assays in the course of monitoring a patient, additional sequential testing should be carried out to confirm baseline values. Performed By: #### L 501.9940 #### [facility] [address] [place], [address] Basophil percentageOrdered B y: Pascual Brown on 09-03-2023 Bilirubin [Mass/Vol] 0.90 mg/dL 0.20-1.00 [facility] Comment on above: For patients on eltr ombopag therapy, use of Dimension Guinda TBIL is not recommended. Chloride [Moles/Vol] 109 mmol/L 98-107 [facility] Glucose [Mass/Vol] 92 mg/dL 74-106 [facility] Potassium [Moles/Vol] 4.5 mmol/L 3.5-5.1 [facility] Protein [Mass/Vol] 6.8 g/dL 6.4-8.2 [facility] Sodium [Moles/Vol] 140 mmol/L 136-145 [facility] Laboratory - Chemistry and C hemistry - challengeOrdered By: Pascual Brown on 09-03-2023 Albumin/Globulin [Mass ratio] 1.1 {ratio} 0.9-2.4 [facility] ALP [Catalytic activity/Vol] 59 U/L 45-117 [facility] ALT [Catalytic activity/Vol] 25 U/L 16-61 [facility] CO2 [Moles/Vol] 26.0 mmol/L 21.0-32.0 [facility] Globulin (S) [Mass/Vol] 3.2 g/dL 2.2-4.2 [facility] Urea nitrogen/Creatinine [Mass ratio] 21.9 mg/mg 10-20 [facility] No Panel InformationOrdered By: Pascual Mott on 09-03-2023 Estimated GFR (MDRD) Amer 70 mL/min >60 [facility] Comment on above: GFR Calc Estimated GFR (MDRD) Non-Af Amer 58 mL/min >60 [facility] Comment on above: Non- GFR Calc Serum or plasma calcium brenda urement (mass/volume)Ordered By: Pascual Mott on 09-03-2023 Calcium [Mass/Vol] 9.0 mg/dL 8.5-10.1 [facility] Serum or plasma creatinine m easurement (mass/volume)Ordered By: Pascual Mott on 09-03-2023 Creatinine [Mass/Vol] 1.28 mg/dL 0.70-1.30 [facility] Comment on above: The validity of the calculated GFR & GFRAA in patients over 70 years has not been determined. Clinical correlation is essential. Serum or plasma urea nitroge n measurement (mass/volume)Ordered By: Pascual Mott on 09-03-2023 Urea nitrogen [Mass/Vol] 28 mg/dL 7-18 [facility] Thin prep Papanicolaou smear with manual screeningOrdered By: Pascual Mott on 09-03-2023 Thin prep Papanicolaou smear with manual screening 3.6 g/dL 3.2-5.0 [facility] Thin prep Papanicolaou smear with manual screening 17 U/L 15-37 [facility] Thin prep Papanicolaou smear with manual screening 5 5-15 [facility] Basophil percentageOrdered B y: Pascual Mott on 02-05-2023 Bilirubin [Mass/Vol] 0.40 mg/dL 0.20-1.00 [facility] Comment on above: For patients on eltr ombopag therapy, use of Dimension Guinda TBIL is not recommended. Chloride [Moles/Vol] 110 mmol/L 98-107 [facility] Glucose [Mass/Vol] 95 mg/dL 74-106 [facility] Potassium [Moles/Vol] 4.4 mmol/L 3.5-5.1 [facility] Protein [Mass/Vol] 7.0 g/dL 6.4-8.2 [facility] Sodium [Moles/Vol] 141 mmol/L 136-145 [facility] Laboratory - Chemistry and C hemistry - challengeOrdered By: Pascual Mott on 02-05-2023 ALP [Catalytic activity/Vol] 65 U/L 45-117 [facility] ALT [Catalytic activity/Vol] 23 U/L 16-61 [facility] CO2 [Moles/Vol] 25.0 mmol/L 21.0-32.0 [facility] Globulin (S) [Mass/Vol] 3.4 g/dL 2.2-4.2 [facility] Urea nitrogen/Creatinine [Mass ratio] 17.8 mg/mg 10-20 [facility] No Panel InformationOrdered By: Pascual Mott on 02-05-2023 Estimated GFR (MDRD) Amer 53 mL/min >60 [facility] Comment on above: GFR Calc Estimated GFR (MDRD) Non-Af Amer 44 mL/min >60 [facility] Comment on above: Non- GFR Calc Thyroid Stimulating Hormone (TSH) 0.40 uIU/mL 0.358-3.74 [facility] Serum or plasma albumin brenda urement (mass/volume)Ordered By: Pascual Mott on 02-05-2023 Albumin [Mass/Vol] 3.6 g/dL 3.2-5.0 [facility] Serum or plasma albumin/glob ulin mass ratioOrdered By: Pascual Mott on 02-05-2023 Albumin/Globulin [Mass ratio] 1.1 {ratio} 0.9-2.4 [facility] Serum or plasma calcium brenda urement (mass/volume)Ordered By: Pascual Mott on 02-05-2023 Calcium [Mass/Vol] 8.9 mg/dL 8.5-10.1 [facility] Serum or plasma creatinine m easurement (mass/volume)Ordered By: Pascual Mott on 02-05-2023 Creatinine [Mass/Vol] 1.63 mg/dL 0.70-1.30 [facility] Comment on above: The validity of the calculated GFR & GFRAA in patients over 70 years has not been determined. Clinical correlation is essential. Serum or plasma urea nitroge n measurement (mass/volume)Ordered By: Pascual Mott on 02-05-2023 Urea nitrogen [Mass/Vol] 29 mg/dL 7-18 [facility] Thin prep Papanicolaou smear with manual screeningOrdered By: Pascual Mott on 02-05-2023 Thin prep Papanicolaou smear with manual screening 18 U/L 15-37 [facility] Thin prep Papanicolaou smear with manual screening 6 5-15 [facility] No Panel InformationOrdered By: Fernando Disla on 01-20-2023 Prostate Specific Antigen Total 2.50 ng/mL 0.0-4.0 [facility] Comment on above: This test was perfor [...] 07-30-2022 Free T4 [Mass/Vol] 1.35 ng/dL 0.76-1.46 [facility] No Panel InformationOrdered By: Dr. Mott on 07-30-2022 Thyroid Stimulating Hormone (TSH) 0.24 uIU/mL 0.358-3.74 [facility] No Panel Informationon 01-16 Prostate Specific Antigen Total 1.76 ng/mL 0.0-4.0 [facility] Work Phone: Comment on above: This test [...] 06/25/2021 5:25:16 PM Ordering Provider: MIRLANDE ARRIAGA [facility]) XR CHEST 2 VIEWSon XR CHEST 2 [...] 06/25/2021 5:31:22 PM Ordering Provider: MIRLANDE ARRIAGA [facility]) XR RIBS 2 VIEWS LEFTon 06-25 XR [...] 06/25/2021 5:34:19 PM Ordering Provider: MIRLANDE Davis [facility] [place] SHOULDER MINIMUM 2 VIEWS LEFTon 06-25-2021 [...] 06/25/2021 6:25:29 PM Ordering Provider: MIRLANDE Davis [facility] [place] XR SPINE THORACIC 2 VIEWSon 06-25-2021 XR [...] 06/25/2021 5:33:30 PM Ordering Provider: MIRLANDE ARRIAGA [facility] ([place]) Vital Signs Date Time Vital Sign Value Performing Clinician Facility 09-03-2023 15:54-0400 Body height 172.[address] Pascual Mott Work Phone: [facility] 09-03-2023 15:54-0400 Body mass index (BMI) [Ratio] 36.2 kg/m2 Dr. Pascual Mott Work Phone: [facility] 09-03-2023 15:54-0400 Body temperature 97.9 [degF] Dr. Pascual Mott Work Phone: [facility] 09-03-2023 15:54-0400 Body weight 108.[address] Pascual Mott Work Phone: [facility] 09-03-2023 15:54-0400 Diastolic blood pressure 82 mm[Hg] Dr. Pascual Mott Work Phone: [facility] 09-03-2023 15:54-0400 Heart rate 73 /min Dr. Pascual Mott Work Phone: [facility] 09-03-2023 15:54-0400 Respiratory rate 16 /min Dr. Pascual Mott Work Phone: [facility] 09-03-2023 15:54-0400 Systolic blood pressure 134 mm[Hg] Dr. Pascual Mott Work Phone: [facility] 02-05-2023 15:56-0400 Body height 172.[address] Pascual Mott Work Phone: [facility] 02-05-2023 15:56-0400 Body mass index (BMI) [Ratio] 34.9 kg/m2 Dr. Pascual Mott Work Phone: [facility] 02-05-2023 15:56-0400 Body temperature 98.6 [degF] Dr. Pascual Mott Work Phone: [facility] 02-05-2023 15:56-0400 Body weight 104.[address] Pascual Mott Work Phone: [facility] 02-05-2023 15:56-0400 Diastolic blood pressure 72 mm[Hg] Dr. Pascual Mott Work Phone: [facility] 02-05-2023 15:56-0400 Heart rate 84 /min Dr. Pascual Mott Work Phone: [facility] 02-05-2023 15:56-0400 Respiratory rate 18 /min Dr. Pascual Mott Work Phone: [facility] 02-05-2023 15:56-0400 SaO2% (BldA) [Mass fraction] 96 % Dr. Pascual Mott Work Phone: [facility] 02-05-2023 15:56-0400 Systolic blood pressure 124 mm[Hg] Dr. Pascual Mott Work Phone: [facility] 01-14-2023 12:10-0400 Body temperature 97 [degF] Dr. Pascual Mott Work Phone: [facility] 01-14-2023 12:10-0400 Diastolic blood pressure 81 mm[Hg] Dr. Pascual Mott Work Phone: [facility] 01-14-2023 12:10-0400 Heart rate 67 /min Dr. Pascual Mott Work Phone: [facility] 01-14-2023 12:10-0400 Respiratory rate 18 /min Dr. Pascual Mott Work Phone: [facility] 01-14-2023 12:10-0400 SaO2% (BldA) [Mass fraction] 94 % Dr. Pascual Mott Work Phone: [facility] 01-14-2023 12:10-0400 Systolic blood pressure 119 mm[Hg] Dr. Pascual Mott Work Phone: [facility] 01-14-2023 10:38-0400 Body height 172.[address] Pascual Mott Work Phone: [facility] 01-14-2023 10:38-0400 Body mass index (BMI) [Ratio] 35 kg/m2 Dr. Pascual Mott Work Phone: [facility] 01-14-2023 10:38-0400 Body weight 104.[address] Pascual Mott Work Phone: [facility] 10-17-2022 11:19-0400 Body mass index (BMI) [Ratio] 35.4 kg/m2 Dr. Pascual Mott Work Phone: [facility] 10-17-2022 11:19-0400 Body weight 108.[address] Pascual Mott Work Phone: [facility] 10-17-2022 11:19-0400 Diastolic blood pressure 89 mm[Hg] Dr. Pascual Mott Work Phone: [facility] 10-17-2022 11:19-0400 Heart rate 76 /min Dr. Pascual Mott Work Phone: [facility] 10-17-2022 11:19-0400 SaO2% (BldA) [Mass fraction] 94 % Dr. Pascual Mott Work Phone: [facility] 10-17-2022 11:19-0400 Systolic blood pressure 155 mm[Hg] Dr. Pascual Mott Work Phone: [facility] 07-30-2022 15:30-0500 Body height 175.[address] Pascual Mott Work Phone: [facility] 07-30-2022 15:30-0500 Body mass index (BMI) [Ratio] 35.1 kg/m2 Dr. Pascual Mott Work Phone: [facility] 07-30-2022 15:30-0500 Body temperature 99 [degF] Dr. Pascual Mott Work Phone: [facility] 07-30-2022 15:30-0500 Body weight 107.[address] Pascual Mott Work Phone: [facility] 07-30-2022 15:30-0500 Diastolic blood pressure 82 mm[Hg] Dr. Pascual Mott Work Phone: [facility] 07-30-2022 15:30-0500 Heart rate 79 /min Dr. Pascual Mott Work Phone: [facility] 07-30-2022 15:30-0500 Respiratory rate 16 /min Dr. Pascual Mott Work Phone: [facility] 07-30-2022 15:30-0500 SaO2% (BldA) [Mass fraction] 97 % Dr. Pascual Mott Work Phone: [facility] 07-30-2022 15:30-0500 Systolic blood pressure 146 mm[Hg] Dr. Pascual Mott Work Phone: [facility] 09-21-2021 07:51-0400 Body temperature 97.9 [degF] Dr. Pascual Mott Work Phone: [facility] Work Phone: 09-21-2021 07:51-0400 Diastolic blood pressure 76 mm[Hg] Dr. Pascual Mott Work Phone: [facility] Work Phone: 09-21-2021 07:51-0400 Heart rate 76 /min Dr. Pascual Mott Work Phone: [facility] Work Phone: 09-21-2021 07:51-0400 Respiratory rate 16 /min Dr. Pascual Mott Work Phone: [facility] Work Phone: 09-21-2021 07:51-0400 SaO2% (BldA) [Mass fraction] 94 % Dr. Pascual Mott Work Phone: [facility] Work Phone: 09-21-2021 07:51-0400 Systolic blood pressure 120 mm[Hg] Dr. Pascual Mott Work Phone: [facility] Work Phone: 09-21-2021 06:24-0400 Body height 175.[address] Pascual Mott Work Phone: [facility] Work Phone: 09-21-2021 06:24-0400 Body mass index (BMI) [Ratio] 34.6 kg/m2 Dr. Pascual Mott Work Phone: [facility] Work Phone: 09-21-2021 06:24-0400 Body weight 106.[address] Pascual Mott Work Phone: [facility] Work Phone: 07-25-2021 12:53-0500 Body mass index (BMI) [Ratio] 36.5 kg/m2 Dr. Pascual Mott Work Phone: [facility] Work Phone: 07-25-2021 12:53-0500 Body temperature 97.4 [degF] Dr. Pascual Mott Work Phone: [facility] Work Phone: 07-25-2021 12:53-0500 Body weight 108.[address] Pascual Mott Work Phone: [facility] Work Phone: 07-25-2021 12:53-0500 Diastolic blood pressure 86 mm[Hg] Dr. Pascual Mott Work Phone: [facility] Work Phone: 07-25-2021 12:53-0500 Heart rate 73 /min Dr. Pascual Mott Work Phone: [facility] Work Phone: 07-25-2021 12:53-0500 Respiratory rate 16 /min Dr. Pascual Mott Work Phone: [facility] Work Phone: 07-25-2021 12:53-0500 SaO2% (BldA) [Mass fraction] 99 % Dr. Pascual Mott Work Phone: [facility] Work Phone: 07-25-2021 12:53-0500 Systolic blood pressure 152 mm[Hg] Dr. Pascual Mott Work Phone: [facility] Work Phone: 06-27-2021 13:30-0500 Body mass index (BMI) [Ratio] 36.5 kg/m2 Dr. Pascual Mott Work Phone: [facility] Work Phone: 06-27-2021 13:30-0500 Body temperature 98.1 [degF] Dr. Pascual Mott Work Phone: [facility] Work Phone: 06-27-2021 13:30-0500 Body weight 108.[address] Pascual Mott Work Phone: [facility] Work Phone: 06-27-2021 13:30-0500 Diastolic blood pressure 86 mm[Hg] Dr. Pascual Mott Work Phone: [facility] Work Phone: 06-27-2021 13:30-0500 Heart rate 83 /min Dr. Pascual Mott Work Phone: [facility] Work Phone: 06-27-2021 13:30-0500 Respiratory rate 18 /min Dr. Pascual Mott Work Phone: [facility] Work Phone: 06-27-2021 13:30-0500 SaO2% (BldA) [Mass fraction] 95 % Dr. Pascual Mott Work Phone: [facility] Work Phone: 06-27-2021 13:30-0500 Systolic blood pressure 150 mm[Hg] Dr. Pascual Mott Work Phone: [facility] Work Phone: 06-25-2021 16:32-0500 Body temperature 98.42 [degF] MIRLANDE ARRIAGA DO [facility] 06-25-2021 16:32-0500 Body weight 111.4 kg MIRLANDE ARRIAGA DO [facility] 06-25-2021 16:32-0500 Diastolic blood pressure 93 mm[Hg] MIRLANDE ARRIAGA DO [facility] 06-25-2021 16:32-0500 Heart rate 95 /min MIRLANDE ARRIAGA DO [facility] 06-25-2021 16:32-0500 Respiratory rate 18 /min MIRLANDE ARRIAGA DO [facility] 06-25-2021 16:32-0500 Systolic blood pressure 155 mm[Hg] MIRLANDE ARRIAGA DO [facility] Encounters Encounter Date Encounter Type Care Provider Facility Start: 10-29-2024 End: 10-29-[address] Pascual Mott DO Work Phone: [facility] Work Phone: Start: 10-29-2024 End: 10-29-[address] Fernando Disla MD -Laboratory Work Phone: Start: 10-29-2024 End: 10-29-2024 ambulatory Pascual Mott Facility:[facility] Start: 2024 End: 2024 Patient encounter procedure Royal Gar DO [facility] Work Phone: Start: 2024 End: 2024 ambulatory Pascual Mott Facility:[facility] Start: 04-26-2024 End: 04-26-2024 ambulatory Yessica Case Facility:[facility] Start: 03-09-2024 End: 03-09-2024 ambulatory Pascual Mott Facility:[facility] Start: 03-03-2024 End: 03-03-2024 ambulatory Pascual Mott Facility:[facility] Start: 03-03-2024 End: 03-03-2024 ambulatory Pascual Mott Facility:[facility] Start: 01-29-2024 End: 01-29-2024 ambulatory Fernando Disla Facility:[facility] Start: 09-05-2023 End: 09-05-[address] Pascual Mott Work Phone: [facility] Work Phone: Start: 09-03-2023 End: 09-03-[address] Pascual Mott Work Phone: [facility] Work Phone: Start: 09-03-2023 End: 09-03-[address] Pascual Mott Work Phone: [facility] Work Phone: Start: 02-05-2023 End: 02-05-[address] Pascual Mott Work Phone: [facility] Work Phone: Start: 02-05-2023 End: 02-05-[address] Pascual Mott Work Phone: [facility] Work Phone: Start: 01-20-2023 End: 01-20-[address] Pascual Mott Work Phone: [facility] Work Phone: Start: 01-20-2023 End: 01-20-[address] Pascual Mott Work Phone: [facility]-Laboratory Work Phone: Start: 01-14-2023 Non-patient / Non-visit Dr. Pascual Mott Work Phone: [facility] Start: 01-14-2023 End: 01-14-2023 Admission to same day surgery center Dr. Pascual Mott Work Phone: [facility] Work Phone: Start: 01-14-2023 End: 01-14-[address] Pascual Mott Work Phone: [facility] Work Phone: Start: 10-17-2022 End: 10-17-[address] Pascual Mott Work Phone: [facility] Work Phone: Start: 07-30-2022 End: 07-30-[address] Pascual Mott Work Phone: [facility] Work Phone: Start: 07-30-2022 End: 07-30-[address] Pascual Mott Work Phone: [facility] Start: 06-24-2022 End: 06-24-[address] Pascual Mott Work Phone: [facility] Start: 01-16-2022 End: 01-16-[address] Pascual Mott Work Phone: [facility] Work Phone: Start: 01-16-2022 End: 01-16-[address] Pascual Mott Work Phone: [facility] Start: 10-05-2021 End: 10-05-[address] Pascual Mott Work Phone: [facility] Start: 09-21-2021 Non-patient / Non-visit Dr. Pascual Mott Work Phone: [facility] Start: 09-21-2021 End: 09-21-2021 Admission to same day surgery center Dr. Pascual Mott Work Phone: [facility] Start: 08-09-2021 End: 08-09-[address] Pascual Mott Work Phone: [facility] Start: 07-25-2021 End: 07-25-[address] Pascual Mott Work Phone: [facility] Start: 06-27-2021 End: 06-27-[address] Pascual Mott Work Phone: [facility] Start: 06-27-2021 End: 06-27-[address] Pascual Mott Work Phone: [facility] Start: 06-25-2021 End: 06-25-2021 Emergency department patient visit MIRLANDE ARRIAGA DO [facility] Procedures Date Procedure Procedure Detail Performing [...] dilator passage esophagus EGD GUIDE WIRE INSERTION [facility] Start: 01-14-2023 Egd transoral biopsy single/multiple EGD BIOPSY SINGLE/MULTIPLE [facility] Start: 01-14-2023 Patient discharge [facility] Start: 07-25-2021 Patient referral [facility] Work Phone: Patient referral [facility] Work Phone: Immunizations Immunization Date Immunization Notes Care Provider [facility] 08-24-2020 Covid (Pfizer) Dr. Pacsual foy Work Phone: [facility] 08-03-2020 Covid (Pfizer) Dr. Pascual foy Work Phone: [facility] Payers Date Payer Category Payer Self-pay [id number] 2023 Medicare [id number] [facility] [id number] 2011 Unknown [id number] Unknown [id number] 2.16.8 [id number] Unknown [id number] 2.16.8 [id number] Unknown [id number] 2.16.8 [id number] Unknown [id number] 2.16.8 [id number] Unknown [id number] 2.16.8 [id number] Unknown [id number] 2.16.8 [id number] Unknown [id number] 2.16.8 [id number] Social History Date Type Detail Facility [facility] Start: 1945 Sex Assigned At Male A [facility] Start: 09-19-2021 End: 09-05-2023 Tobacco smoking status NHIS Unknown if ever smoked [facility] Start: 09-05-2023 Tobacco smoking stat NHIS Never smoked tobacco (finding) [facility] Goals Date Patient Goal Desired Activity /State Mental Status Date Assessment Result Facility 01-14-2023 Cognitive function Level Of Consciousness Sedated [facility] Work Phone: 01-14-2023 Cognitive function Voice/Name [facility] Work Phone: 09-21-2021 Cognitive function Voice/Name [facility] Work Phone: Clinical Notes 06-25-2021 to 2024 Note Date & Type Note Facility 2024 Evaluation note Diagnosis Onset Date Resolution Barretts esophagus chronic 2024 8:01am Dysphagia chronic September 07 8:01am Eosinophilic esophagitis chronic 2024 8:01am [facility] Work Phone: 1(852) 383-286208-22-2023 Procedure [facility] 01-14-2023 Procedure [...] in any part of the body Seizures [id number] [employer] [address] [place] [address]. All rights reserved. This information is not [...] the ears or bruising around the eyes [id number] [employer] [address] [place] [address]. All rights reserved. This information is not intended as a substitute for professional medical care. Always follow [facility] professional[facility] instructions. 06/25/2021 18:16:23 Rib Contusion Rib [...] or as directed by your healthcare provider [id number] [employer] [address] [place] [address]. All rights reserved. This information is not [...] shoulder or upper arm Fever or chills [phone] [employer] [address] [place] [address]. All rights reserved. This information is not [...] the ears or bruising around the eyes [id number] [employer] [address] [place] [address], [place] [address]. All rights reserved. This information is not [...] in vomit, stools (black or red color) [phone] [employer] [address] [place] [address]. All rights reserved. This information is not intended as a substitute for professional medical care. Always follow yourhealthcare professional's instructions. Follow Up Care 06/25/2021 16:11:21 With:MIGUE COLEY MD Address: [address] [place] [address]- When:2-4 days [facility] Evaluation + Plan note No data available for this section [facility] Evaluation note* Diagnosis Onset Date Resolution Status Fall acute Left shoulder strain acute Neck pain acute Dysphagia acute Left shoulder strain acute Dysphagia acute FH: colon cancer acute FH: esophageal cancer acute [facility] Work Phone: Evaluation note* Diagnosis Onset Date Resolution Status Barretts esophagus acute Dysphagia acute Eosinophilic esophagitis acu te FH: colon cancer acute FH: esophageal cancer acute [facility] Work Phone: Evaluation note* Diagnosis Onset Date Resolution Status Barretts esophagus chronic Dysphagia chronic Eosinophilic esophagitis chr onic 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 Barretts esophagus chronic Hypertension [facility] Work Phone: Evaluation note* Diagnosis Onset Date Resolution Status Barretts esophagus chronic Dysphagia chronic Eosinophilic esophagitis chr onic GERD (gastroesophageal reflux disease) [facility] Work Phone: Evaluation note* Diagnosis Onset Date Resolution Status Barretts esophagus chronic Dysphagia chronic Eosinophilic esophagitis chr onic GERD (gastroesophageal reflux disease) chronic 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 Barretts esophagus chronic Hypertension [facility] Work Phone: Evaluation note* Diagnosis Onset Date Resolution Status 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 Pascual Mott, DO Status:[facility] Location: [place] [address] History and Physical Date of Admission: 01/14/23 HARSHAD CHAND, is a 77 M who presents to the office today for f/u dysphagia, GERD, Pinedo's, EOE. He does have poor motility along [...] and oriented x3 Quality Reporting Tobacco Screening ([facility] 138) Smoking Status: Never smoker Assessment and [...] Pascual Mott DO; Royal Gar DO~ Signed [facility] Work Phone: Reason for referral (narrative)No reason for referral [facility] Work Phone: Summary Purpose Family History [...] No September 19, 2021 2:33pm Power of Reverse Unit Operator Fisherman No September 19 2:33pm Advance Directive Response Recorded Date/ Time Name of Medical Power of Reverse Unit Operator Fisherman POA January 08, 2023 2:37pm Advance Directives No November 08 8:11am Living Will Yes January 08 3 2:37pm Power of Reverse Unit Operator Fisherman Yes January 08, 2 023 2:37pm Advance Directive Response Recorded Date/ Time Advance Directives No November 08 8:11am Living Will Yes January 08 3 2:37pm Power of Reverse Unit Operator Fisherman Yes January 08, 2 023 2:37pm Advance Directive Response Recorded Date/ Time Living Will Yes January 08 3 2:37pm Do you have a Healthcare Power of Reverse Unit Operator Fisherman? Yes January 08, 2023 2:37pm Advance Directives [...] section and content) DATE CREATED AUTHOR 06/27/2021 [employer] ([place]) DATE CREATED AUTHOR AUTHOR'S ORGANIZ ATION [facility]/02/20[facility] Goals (unrecognized section and content) Goals may [...] Provider, Referr ing Provider Active Isis Avilez SWITCHMAN SUPERVISOR, SWITCHMAN SUPERVISOR-C Attending Provider Active Team Status: Active Member [...] Active Member Role Status Dates Dr. Pascual oMtt DO Primary Care Provider Active Team Status: [...] BE BASED ON THE PRIMARY CLINICAL RECORDS. [facility] [employer] provides no warranty or guarantee of the accuracy or completeness of information in this document.
[2025-03-15 17:12] LABS: Carboxyhemoglobin Frac (CO) 1.7 % (0.0-1.5)
[2025-03-15 17:20] LABS: AST(SGOT) 22 U/L (<=37); Alanine Aminotransfer ALT/SGPT 19 U/L (<=46); Albumin, Serum 4.1 g/dL (3.4-4.8); Alkaline Phosphatase 64 U/L (40-129); Anion Gap 12 (5-15); BUN 30 mg/dL (4-19); BUN/Creat Ratio 19.3 RATIO (10-20); Calcium,Total 9.2 mg/dL (7.6-11.0); Carbon Dioxide 22.3 mmol/L (21.0-32.0); Chloride 106 mmol/L (98-108); Globulin 2.9 g/dL (2.2-4.2); Glucose 106 mg/dL (70-99); Potassium 4.7 mmol/L (3.3-5.1)
[2025-03-15 17:51] LABS: Carboxyhemoglobin Order ORDER TUBE
[2025-03-15 17:53] LABS: Color, Urine Yellow (Yellow); Glucose, Dipstick Normal (Normal); Ketone-Dipstick Negative (Negative); Leukocyte Esterase-Dipstick 500 /ul (Negative); Nitrite-Dipstick Positive (Negative); Occult Blood-Urine 10 /ul (Negative); Protein-Dipstick 15 mg/dl (Negative); Specific Gravity, Urine 1.015 (1.002-1.030); Urine Bilirubin Dipstick Negative (Negative)
[2025-03-15 20:10] LABS: Red Blood Cells-Urine 0-5 SEEN /hpf (0-5)
== END | disposition home or self-care (01) ==
LOC: LAB 16:45
PROVIDERS: PCP Family Medicine; Referring Provider Family Medicine; Visit Provider Family Medicine
DX: N18.30 Chronic kidney disease, stage 3 unspecified (principal); Z77.29 Contact with and (suspected) exposure to other hazardous substances
CPT/HCPCS: 36415; 80053; 81001; 82375